=== PATIENT | male | born 1950 | race Caucasian/White ===

== ENCOUNTER → 2016-07-02 | Outpatient (CLI) | payer OTHER, MEDICARE ==
[~2016-07-02] MED LIST: ASPEC81 PO; ATOR-24 PO; CALC500C70 PO; METO25TA3 PO; NTRGSL/4 SL; RAMI5CAP PO
[2016-07-02 10:21] LABS: BASO % 0.8 %; BASO ABS # 0.05 K/uL (0-0.2); COMPLETE YES; HEMATOCRIT 44.4 % (42-52); IG% 0.2 %; LYMPH % 45.3 %; MEAN CELL VOLUME 88.1 fL (80-100); MEAN CORPUSCULAR HEMOGLOBIN 30.6 pg (25-34); MEAN CORPUSCULAR HGB CONC 34.7 g/dl (32-36); MEAN PLATELET VOLUME 10.7 fL (7.4-10.4); MONO % 10.5 %; NEUT % 38.2 %; PLATELET COUNT 160 K/uL (130-400); RED BLOOD COUNT 5.04 M/uL (4.7-6.1)
[2016-07-02 11:11] LABS: ESTIMATED AVERAGE GLUCOSE 140 mg/dl; HA1C FLAG Normal (Normal)
[2016-07-02 12:20] LABS: ALKALINE PHOSPHATASE 88 U/L (45-117); ALT/SGPT 49 U/L (12-78); AST/SGOT 43 U/L (15-37); BLOOD UREA NITROGEN 21 mg/dl (7-18); BUN/CREATININE RATIO 13.8 (10-20); CALCIUM 9.2 mg/dl (8.5-10.1); CARBON DIOXIDE 19 mmol/L (21-32); CHLORIDE 108 mmol/L (98-107); CHOLESTEROL 172 mg/dl (0-200); CHOLESTEROL/HDL RATIO 3.6; GLUCOSE 138 mg/dl (70-99); HDL CHOLESTEROL 48 mg/dl; LDL CHOLESTEROL CALCULATED 78 mg/dl; POTASSIUM 4.4 mmol/L (3.5-5.1); SODIUM 140 mmol/L (136-145); TRIGLYCERIDES 228 mg/dl (0-150); VERY LOW DENSITY LIPOPROT CALC 46 mg/dl
== END | disposition home or self-care (01) ==
LOC: C.LAB 09:45
PROVIDERS: ATTEND Family Medicine
DX: E78.5 Hyperlipidemia, unspecified (principal); N18.3 Chronic kidney disease, stage 3 (moderate); I12.9 Hypertensive chronic kidney disease with stage 1 through stage 4 chronic kidney disease, or unspecified chronic kidney disease; I73.9 Peripheral vascular disease, unspecified; R73.01 Impaired fasting glucose

== ENCOUNTER → 2016-08-07 | Outpatient (CLI) | payer OTHER, MEDICARE ==
[2016-08-07 10:58] LABS: HEMATOCRIT 42.5 % (42-52); MEAN CELL VOLUME 87.1 fL (80-100); MEAN CORPUSCULAR HEMOGLOBIN 30.5 pg (25-34); MEAN CORPUSCULAR HGB CONC 35.1 g/dl (32-36); MEAN PLATELET VOLUME 10.2 fL (7.4-10.4); PLATELET COUNT 143 K/uL (130-400); RED BLOOD COUNT 4.88 M/uL (4.7-6.1); WHITE BLOOD COUNT 5.71 K/uL (4.8-10.8)
[2016-08-07 11:07] LABS: BLOOD UREA NITROGEN 21 mg/dl (7-18); BUN/CREATININE RATIO 12.9 (10-20); CALCIUM 8.7 mg/dl (8.5-10.1); CARBON DIOXIDE 23 mmol/L (21-32); CHLORIDE 110 mmol/L (98-107); GLUCOSE 125 mg/dl (70-99); POTASSIUM 4.4 mmol/L (3.5-5.1); SODIUM 143 mmol/L (136-145)
[2016-08-07 11:18] LABS: CHOLESTEROL 158 mg/dl (0-200); HDL CHOLESTEROL 40 mg/dl; LDL CHOLESTEROL CALCULATED 76 mg/dl; TRIGLYCERIDES 211 mg/dl (0-150); VERY LOW DENSITY LIPOPROT CALC 42 mg/dl
== END | disposition home or self-care (01) ==
LOC: C.LAB 09:57
PROVIDERS: ATTEND Internal Medicine
DX: N18.3 Chronic kidney disease, stage 3 (moderate) (principal); I12.9 Hypertensive chronic kidney disease with stage 1 through stage 4 chronic kidney disease, or unspecified chronic kidney disease

== ENCOUNTER → 2016-09-04 | Outpatient (CLI) | payer OTHER, MEDICARE ==
[2016-09-04 12:17] LABS: BLOOD UREA NITROGEN 19 mg/dl (7-18); BUN/CREATININE RATIO 12.5 (10-20); CALCIUM 9.1 mg/dl (8.5-10.1); CARBON DIOXIDE 27 mmol/L (21-32); CHLORIDE 109 mmol/L (98-107); GLUCOSE 121 mg/dl (70-99); POTASSIUM 4.6 mmol/L (3.5-5.1); SODIUM 141 mmol/L (136-145)
== END | disposition home or self-care (01) ==
LOC: C.LAB 11:16
PROVIDERS: ATTEND Internal Medicine Cardiovascular Disease
DX: N18.3 Chronic kidney disease, stage 3 (moderate) (principal)

== ENCOUNTER → 2017-01-22 | Outpatient (CLI) | payer OTHER, MEDICARE ==
[2017-01-22 12:14] LABS: HEMATOCRIT 44.8 % (42-52); MEAN CELL VOLUME 91.2 fL (80-100); MEAN CORPUSCULAR HEMOGLOBIN 30.8 pg (25-34); MEAN CORPUSCULAR HGB CONC 33.7 g/dl (32-36); PLATELET COUNT 146 K/uL (130-400); RED BLOOD COUNT 4.91 M/uL (4.7-6.1); WHITE BLOOD COUNT 5.76 K/uL (4.8-10.8)
[2017-01-22 12:47] LABS: RATIO 57.6 mcg/mg (0-30.0)
[2017-01-22 12:47] LABS: ESTIMATED AVERAGE GLUCOSE 143 mg/dl; HA1C FLAG Normal (Normal)
[2017-01-22 12:48] LABS: BLOOD UREA NITROGEN 19 mg/dl (7-18); GLUCOSE 126 mg/dl (70-99)
[2017-01-22 12:49] LABS: ALB/GLOB RATIO 0.9 (0.9-2); ALKALINE PHOSPHATASE 91 U/L (45-117); ALT/SGPT 48 U/L (12-78); AST/SGOT 44 U/L (15-37); BUN/CREATININE RATIO 13.8 (10-20); CALCIUM 9.1 mg/dl (8.5-10.1); CARBON DIOXIDE 26 mmol/L (21-32); CHLORIDE 108 mmol/L (98-107); CHOLESTEROL 172 mg/dl (0-200); HDL CHOLESTEROL 43 mg/dl; LDL CHOLESTEROL CALCULATED 86 mg/dl; POTASSIUM 4.8 mmol/L (3.5-5.1); SODIUM 138 mmol/L (136-145); TRIGLYCERIDES 215 mg/dl (0-150); VERY LOW DENSITY LIPOPROT CALC 43 mg/dl
== END | disposition home or self-care (01) ==
LOC: C.LAB 10:26
PROVIDERS: ATTEND Family Medicine
DX: N18.3 Chronic kidney disease, stage 3 (moderate) (principal); I25.10 Atherosclerotic heart disease of native coronary artery without angina pectoris; E78.5 Hyperlipidemia, unspecified; I73.9 Peripheral vascular disease, unspecified; E11.9 Type 2 diabetes mellitus without complications; I12.9 Hypertensive chronic kidney disease with stage 1 through stage 4 chronic kidney disease, or unspecified chronic kidney disease

== ENCOUNTER → 2017-02-19 | Outpatient (CLI) | payer OTHER, MEDICARE ==
[~2017-02-19] MED LIST changes: +OPTIRAY 320 IV PRN
--- NOTE | 2017-02-19 12:20 | DIAGNOSTIC IMAGING REPORT ---
ANGIO ABD/PELVIS WITH CONTRAST CLINICAL HISTORY: 66 years-old Male presenting with I71.4 Aneurysm of infrarenal abdominal aorta. TECHNIQUE: Multidetector CT angiography of the abdomen and pelvis was performed after the administration of intravenous contrast. 3-D volumetric and/or maximum intensity projection (MIP) images were subsequently reconstructed for review. IV contrast: 119 mL of Optiray 320. A dose lowering technique was used consistent with the principles of ALARA (as low as reasonably achievable). COMPARISON: 01/27/2016. CT DOSE (mGy.cm): The estimated cumulative dose is 823.26 mGy.cm. 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 Immediately distal to the take off of the superior mesenteric artery is aneurysmal dilatation of the abdominal aorta, which measures 3.9 cm in maximal axial dimension, previously 3.9 cm. At the level of the takeoff of the renal arteries, there is suggestion of a short segment dissection or prominent mural thrombus. Alternatively this may represent postsurgical change. This is not significantly changed in appearance from prior. The celiac axis, superior mesenteric, and right renal arteries are patent. Minimal aneurysmal dilatation of one of the origins of the segmental right renal arteries measures 7 mm in diameter, not significant changed from prior. 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 Irregularity of the infrarenal abdominal aorta, which is likely postsurgical in etiology. Aneurysmal dilatation at the aortic bifurcation unchanged from prior. A tiny anteriorly projecting opacified outpouching is noted (series 3 image 248). This is unchanged from prior may represent a small penetrating ulcer. The common iliac arteries are normal in caliber beyond their origins. Atherosclerosis throughout the external iliac arteries with prominent calcified plaque resulting in significant narrowing at the level of the common femoral arteries. Minimal diameter on the right common femoral artery measures 3 to 4 mm in comparison to normal distal diameter of 10 mm. Minimal diameter on the left common femoral artery measures 5 mm in comparison to normal distal diameter of 8 mm. The appearance of the common femoral vessels on the prior exam were similar. No acute vascular injury is evident. The remainder of the exam demonstrates persistent architectural distortion at the left lung base, likely scarring. Old calcified granuloma noted. Suspected dependent atelectasis. No pericardial or pleural effusion. Normal heart size. The patient is postcholecystectomy. Atrophy of the left kidney. Multiple simple right renal cysts. No hydronephrosis. Remaining solid viscera normal. Sigmoid diverticulosis with wall thickening suggestive of chronic diverticular disease. Normal appendix. No free fluid. No lymphadenopathy. Degenerative changes of the spine. IMPRESSION: 1. Postsurgical changes of the abdominal aorta, which are stable appearance. No change in size of the 3.9 cm suprarenal abdominal aortic aneurysm. Unchanged appearance of the infrarenal abdominal aorta, likely postsurgical change versus less likely chronic short segment dissection. 2. Aneurysmal dilatation of the aortic bifurcation. Stable appearance of a tiny anteriorly projecting suspected penetrating ulcer at the level of the aortic bifurcation. 3. Bilateral stenosis of the common femoral arteries, not significant changed from prior. 4. Chronic diverticular disease of the sigmoid colon. 5. Persistent architectural distorting and suspected scarring of the left lung base. 6. Additional chronic changes as above. Electronically signed by: Juanjo Chaudhary M.D. 02/19/2017 12:19 PM Dictated Date/Time: 02/19/2017 12:05 PM
== END | disposition home or self-care (01) ==
LOC: C.CTS 11:25
PROVIDERS: ATTEND Internal Medicine Interventional Cardiology
DX: I71.4 Abdominal aortic aneurysm, without rupture (principal); I77.1 Stricture of artery; K57.32 Diverticulitis of large intestine without perforation or abscess without bleeding

== ENCOUNTER → 2017-03-15 | Outpatient (CLI) | payer OTHER, MEDICARE ==
[~2017-03-15] MED LIST changes: -OPTIRAY 320 IV PRN
[2017-03-15 16:23] LABS: BASO % 0.2 %; BASO ABS # 0.02 K/uL (0-0.2); COMPLETE YES; EOS % 1.3 %; IG% 0.2 %; LYMPH % 36.1 %; LYMPH ABS # 3.05 K/uL (1.2-3.4); MEAN CELL VOLUME 90.3 fL (80-100); MEAN CORPUSCULAR HEMOGLOBIN 30.5 pg (25-34); MEAN CORPUSCULAR HGB CONC 33.8 g/dl (32-36); MEAN PLATELET VOLUME 10.5 fL (7.4-10.4); MONO % 10.4 %; NEUT % 51.8 %; PLATELET COUNT 149 K/uL (130-400); RED BLOOD COUNT 4.65 M/uL (4.7-6.1); WHITE BLOOD COUNT 8.44 K/uL (4.8-10.8)
== END | disposition home or self-care (01) ==
LOC: C.LAB 15:27
PROVIDERS: ATTEND Family Medicine
DX: M10.072 Idiopathic gout, left ankle and foot (principal)

== ENCOUNTER → 2017-07-29 | Outpatient (CLI) | payer OTHER, MEDICARE ==
[2017-07-29 12:29] LABS: HEMOGLOBIN A1C 6.7 % (4.5-5.6)
[2017-07-29 12:37] LABS: ALT/SGPT 56 U/L (12-78); BLOOD UREA NITROGEN 21 mg/dl (7-18); CALCIUM 9.4 mg/dl (8.5-10.1); CARBON DIOXIDE 25 mmol/L (21-32); CHOLESTEROL 165 mg/dl (0-200); CREATININE 1.42 mg/dl (0.60-1.40); GLUCOSE 126 mg/dl (70-99); POTASSIUM 4.2 mmol/L (3.5-5.1); SODIUM 135 mmol/L (136-145)
[2017-07-29 12:45] LABS: LDL CHOLESTEROL CALCULATED 84 mg/dl
== END | disposition home or self-care (01) ==
LOC: C.LAB 10:06
PROVIDERS: ATTEND Family Medicine
DX: E78.5 Hyperlipidemia, unspecified (principal); I25.10 Atherosclerotic heart disease of native coronary artery without angina pectoris; I10 Essential (primary) hypertension

== ENCOUNTER → 2018-01-28 | Outpatient (CLI) | payer OTHER, MEDICARE ==
[~2018-01-28] MED LIST changes: -ASPEC81 PO; +ASPI-320 PO
[2018-01-28 12:42] LABS: ALT/SGPT 48 U/L (12-78); BLOOD UREA NITROGEN 19 mg/dl (7-18); CALCIUM 8.8 mg/dl (8.5-10.1); CARBON DIOXIDE 23 mmol/L (21-32); CHOLESTEROL 156 mg/dl (0-200); CREATININE 1.44 mg/dl (0.60-1.40); GLUCOSE 119 mg/dl (70-99); LDL CHOLESTEROL CALCULATED 77 mg/dl; POTASSIUM 4.7 mmol/L (3.5-5.1); SODIUM 135 mmol/L (136-145); URIC ACID 6.3 mg/dl (2.6-7.2)
[2018-01-28 12:55] LABS: HEMOGLOBIN A1C 6.8 % (4.5-5.6)
== END | disposition home or self-care (01) ==
LOC: C.LAB 10:33
PROVIDERS: ATTEND Family Medicine
DX: E78.5 Hyperlipidemia, unspecified (principal); E11.22 Type 2 diabetes mellitus with diabetic chronic kidney disease; N18.3 Chronic kidney disease, stage 3 (moderate); I12.9 Hypertensive chronic kidney disease with stage 1 through stage 4 chronic kidney disease, or unspecified chronic kidney disease; I25.10 Atherosclerotic heart disease of native coronary artery without angina pectoris; M10.9 Gout, unspecified; Z11.59 Encounter for screening for other viral diseases

== ENCOUNTER 2023-12-06 05:02 | Observation (INO) ==
--- NOTE | 2023-11-26 13:25 | PAT Medication Instructions ---
Medication Instructions Date of Service November 26, 2023 Home Medications Medication Instructions Recorded metformin 500 mg tablet 500 mg PO BID #180 tabs 06/22/23 ramipril 5 mg capsule 5 mg PO BID #180 caps 07/07/23 allopurinol 100 mg tablet 200 mg (2 x 100 mg) PO QAM gout 07/29/23 #180 tabs metoprolol succinate 50 mg 50 mg PO QAM #90 tabs 09/08/23 tablet,extended release 24 hr clindamycin phosphate 1 % lotion 1 applic topical DAILY PRN pimples 10/20/23 #60 mL Medication List: metformin 500 mg tablet 500 mg PO BID ramipril 5 mg capsule 5 mg PO BID allopurinol 100 mg tablet 200 mg (2 x 100 mg) PO QAM gout metoprolol succinate 50 mg tablet,extended release 24 hr 50 mg PO QAM clindamycin phosphate 1 % lotion 1 applic topical DAILY PRN pimples acetaminophen 500 mg capsule 1,000 mg PO TID PRN Pain aspirin 81 mg tablet,delayed release (Adult Aspirin Regimen) 81 mg PO QAM atorvastatin 40 mg tablet 40 mg PO QAM hyperlipidemia cholecalciferol (vitamin D3) 25 mcg (1,000 unit) tablet (Vitamin D3) 25 mcg PO QAM cyanocobalamin (vitamin B-12) 1,000 mcg tablet (Vitamin B-12) 1,000 mcg PO QAM isosorbide mononitrate 30 mg tablet,extended release 24 hr 30 mg PO QAM magnesium 200 mg tablet 400 mg PO QAM naproxen sodium 220 mg tablet 220 mg PO BID PRN Pain MEDICATION INSTRUCTIONS: Continue as directed clindamycin phosphate 1 % lotion 1 applic topical DAILY PRN pimples (do not apply near surgical area after bathing prior to surgery) ASK your surgeon for instructions naproxen sodium 220 mg tablet 220 mg PO BID PRN Pain ASK your prescriber and surgeon aspirin 81 mg tablet,delayed release (Adult Aspirin Regimen) 81 mg PO QAM DO NOT take the morning of surgery metformin 500 mg tablet 500 mg PO BID ramipril 5 mg capsule 5 mg PO BID cholecalciferol (vitamin D3) 25 mcg (1,000 unit) tablet (Vitamin D3) 25 mcg PO QAM cyanocobalamin (vitamin B-12) 1,000 mcg tablet (Vitamin B-12) 1,000 mcg PO QAM magnesium 200 mg tablet 400 mg PO QAM Take morning of surgery With a small sip of water, OTHERWISE NOTHING TO EAT OR DRINK AFTER MIDNIGHT: allopurinol 100 mg tablet 200 mg (2 x 100 mg) PO QAM gout metoprolol succinate 50 mg tablet,extended release 24 hr 50 mg PO QAM atorvastatin 40 mg tablet 40 mg PO QAM hyperlipidemia isosorbide mononitrate 30 mg tablet,extended release 24 hr 30 mg PO QAM acetaminophen 500 mg capsule 1,000 mg PO TID PRN Pain Take evening before surgery metformin 500 mg tablet 500 mg PO BID ramipril 5 mg capsule 5 mg PO BID acetaminophen 500 mg capsule 1,000 mg PO TID PRN Pain Other Notes If you have any questions please call us at [phone] or [phone] or [phone] or [phone]
--- NOTE | 2023-11-30 08:58 | Anesthesiology Consultation ---
Date of Service November 30, 2023 Assessment & Plan (1) Encounter for pre-operative examination: - check BSG am DOS. - urostomy bag: patient plans to bring overnight bag for observation interval post-op at [facility]. - cardiology office visit 11/19/23 [place]: "...Frequent ventricular premature beats. 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 Coronary arteryPCI to LAD x2 in 1999, 2000--stable, CCS class 1 symptoms...AAA - post open repair in 2006. Stable mild suprarenal, infrarenal residual aneurysms--maximum diameter 3.[address] 2017, 3.8 cm 10/2022...Chronic kidney disease--stage III, stable serum creatinine were around 1.1-1.5...Stable from a cardiac standpoint. Activity limited primarily by hip issues. No new exertional cardiac symptoms. On exam today no signs of heart failure. Clinically in sinus rhythm and no additional ectopy noted on exam...continue Toprol-XL 50 mg daily. Repeat Holter at some point..." - pulmonology office visit 09/02/23 [place]: "...prior history of tobacco exposure and emphysema identified on CT scan with PFTs showing borderline airflow obstruction versus normal variant..asymptomatic...does have a nodular density at the left lung base which will require radiographic surveillance...COPD: Will obtain complete PFTs. As the patient is asymptomatic at this point in time we will hold off on inhalers...pulmonary nodule: This nodular density at the left lung base may represent atelectasis or scarring. Continued radiographic surveillance is needed..." - Outpatient joint assessment: Patient is currently scheduled for inpatient pathway. If re-evaluated and patient/surgeon requests outpatient pathway, patient is not advised candidate for outpatient joint program from anesthesia standpoint. Chart Review Chart Review: Acceptable Risk for Surgery and Patient seen in Pre Admission Jessica morocho Teaching & Discussion Pre-Anesthesia Teaching/Discussion Notes: Instructed NPO after midnight before surgery, except medications with 15 cc of water. Medication instructions provided according to the PAT guidelines. History Surgery Operation Date: 12/06/23 07:00 Proposed Procedures p Right Anterior Total Hip Arthroplasty - Oscar Granado, DO Height/Weight Height: 5 ft 11 in Weight: 94.6 kg Allergies Allergy/AdvReac Type Severity Reaction Status Date / Time aztreonam Allergy Unknown swelling, Verified 11/25/23 11:12 hives Carbapenems Allergy Unknown swelling, Verified 11/25/23 11:12 hives Cephalosporins Allergy Unknown swelling, Verified 11/25/23 11:12 hives Penicillins Allergy Unknown swelling, Verified 11/25/23 11:12 hives Medications Home Medications Medication Instructions Recorded Confirmed Last Taken ramipril 5 mg capsule 5 mg PO BID #180 caps 07/07/23 11/25/23 Unknown allopurinol 100 mg tablet 200 mg (2 x 100 mg) PO QAM gout 07/29/23 11/25/23 Unknown #180 tabs metoprolol succinate 50 mg 50 mg PO QAM #90 tabs 09/08/23 11/25/23 Unknown tablet,extended release 24 hr clindamycin phosphate 1 % lotion 1 applic topical DAILY PRN pimples 10/20/23 11/25/23 Unknown #60 mL acetaminophen 500 mg capsule 1,000 mg PO TID PRN Pain 11/25/23 11/25/23 Unknown aspirin 81 mg tablet,delayed 81 mg PO QAM 11/25/23 11/25/23 Unknown release (Adult Aspirin Regimen) cholecalciferol (vitamin D3) 25 25 mcg PO QAM 11/25/23 11/25/23 Unknown mcg (1,000 unit) tablet (Vitamin D3) cyanocobalamin (vitamin B-12) 1,000 mcg PO QAM 11/25/23 11/25/23 Unknown 1,000 mcg tablet (Vitamin B-12) isosorbide mononitrate 30 mg 30 mg PO QAM 11/25/23 11/25/23 Unknown tablet,extended release 24 hr magnesium 200 mg tablet 400 mg PO QAM 11/25/23 11/25/23 Unknown naproxen sodium 220 mg tablet 220 mg PO BID PRN Pain 11/25/23 11/25/23 Unknown atorvastatin 40 mg tablet 40 mg PO QAM hyperlipidemia #90 11/26/23 Unknown tabs metformin 500 mg tablet 500 mg PO BID #180 tabs 11/26/23 Unknown Past Medical History Medical History (Updated 11/30/23 @ 09:24 by Jaye M. Onink, PA-C) Chronic kidney disease left renal atrophy COPD (chronic obstructive pulmonary disease) newly dx, following with Dr De Guzman-denannmarie needing albuterol inhaler Coronary artery disease S/p stent x 1 in 1999; stent x 1 2001 Difficult intravenous access DM type 2 (diabetes mellitus, type 2) on metformin Gout last flare more than 2 years ago High cholesterol History of abdominal aortic aneurysm (2006) s/p repair 2006 Also has had a infrarenal abd aortic aneurysm History of BPH History of COVID-19 01/2022, home test and drive thru [place] test, not hospitalized; congestion, fatigue>resolved History of prostate cancer "markers pointing towards prostate cancer" per [facility]. Hx of bladder cancer dx 2021 -> cystectomy Hx of tinnitus Hypertension controlled, stable per pt PAD (peripheral artery disease) Presence of urostomy Psoriasis Sensorineural hearing loss Sleep apnea cpap Patient denies h/o stroke, seizures, heart attack, heart failure, blood clots/DVTs or blood transfusions. Exercise / Class Metabolic Activity II 4-5 Yardwork/Stairs/Walk up hill (denies chest discomfort or shortness of breath with one flight of stairs) Past Family History Family History Mother Cardiac disorder Cancer Hypertension Father Myocardial infarction Sister Skin cancer Other No family history of adverse response to anesthesia Denies family history of Ovarian cancer Prostate cancer Breast cancer Colorectal cancer Past Surgical History Surgical History H/O Achilles tendon repair left H/O transurethral resection of bladder tumor (TURBT) (05/19/22) 05/19/22 Anisa; History of AAA (abdominal aortic aneurysm) repair (2006) 2006, [place], [place] History of angioplasty 12/2018, right leg, stent x1-[place] [facility]; placed behind RT knee.; f/u MONICA Martinez History of cardiac cath 1999, x1 stent, in [facility]. 04/18/2002, x1 stent-[address] in [facility] 11/2022 - [facility] no stents. History of cataract surgery bilat. History of cholecystectomy History of cystoscopy History of heart artery stent 1999, x1 stent, in [facility]. 04/18/2002, x1 stent-[address] in [place] History of total cystectomy (12/2022) [facility] Hx of colonoscopy S/P prostatectomy (12/2022) [facility] Status post surgical removal and fulguration of bladder neoplasm (10/2022) [facility] Past Anesthesia History No Hx of Anesthesia Complications and No Family Hx of Anesthesia Complications History of PONV No Hx of PONV and No Hx of Motion Sickness Social History Smoking Status: Former smoker tobacco type: cigarettes Smoking cigarettes per day: 40 Do You Dip or Chew Tobacco: No Smoking End Date: 2006 Hx Alcohol Use: Yes Alcohol type: beer alcohol intake frequency: a few times a month Hx Substance Use: No substance use type: does not use Review of Systems Patient denies chest pain, shortness of breath, dyspnea on exertion, reflux, fever, chills, cough, wheezing, or palpitations. Physical Exam Vital Signs Vitals BP 122/75 P 104 (Pt notes some anxiety regarding procedure/being in clinical setting) TEMP 98 SP02 96% on RA RESP 18 Physical Patient resting comfortably in chair in no acute distress, alert and oriented, responding appropriately throughout visit Full cervical extension range of motion without pain TMD 3.5 finger breadths Mallampati Score 3 Dentition: many implants; denies chipped or loose teeth, caps/crowns, or bridges Lungs: normal respiratory effort. Good air movement, clear throughout to auscultation, no adventitious breath sounds Cardiac: regular rate and rhythm, no murmurs noted Carotid arteries: negative bruit bilat Lab Results Anesthesia Preop Results Results Anesthesia Widget: WBC 13.33 K/ul (4.8-10.8) H 11/30/23 Hgb 11.1 g/dl (14.0-18.0) L 11/30/23 Hct 34.2 % (42.0-52.0) L 11/30/23 Plt 198 K/uL (130-400) 11/30/23 Na 137 mmol/L (136-145) 11/30/23 K 4.5 mmol/L (3.5-5.1) 11/30/23 Cl 104 mmol/L (98-107) 11/30/23 CO2 24 mmol/L (21-32) 11/30/23 BUN 30 mg/dl (6-23) H 11/30/23 Creat 1.25 mg/dl (0.6-1.4) 11/30/23 Glucose Level 214 mg/dl (70-99(Fasting)) H 11/30/23 PT 10.9 Seconds (9.0-12.0) 11/30/23 PTT 26 Seconds (21-31) 11/30/23 INR 1.0 (0.9-1.1) 11/30/23 HA1c 8.0 % (4.5-5.6) H 11/30/23 Blood Type O Positive 11/30/23 Antibody Screen NEGATIVE 11/30/23 Testing Laboratory Results Surgeon's office made aware of elevated A1c and WBC with left shift. Acceptable to proceed per discussion with Dr. Oconnor. Electrocardiogram Date: 07/15/23 Sinus rhythm with frequent and consecutive premature ventricular complexes, rate 77 bpm Left anterior fascicular block Minimal voltage criteria for LVH, may be normal variant Possible inferior infarct, age undetermined Echocardiogram Date: 08/26/23 EF 50-55% Grade I diastolic dysfunction Basal inferior and posterior hypokinesis and mid inferior hypokinesis Mild mitral regurgitation Stress Test Date: 11/26/22 MPHR 97% Abnormal exercise stress echo-increased inferior/inferoseptal hypokinesis with exercise METS 7 EF 50-55% Mild LVH No significant valvular pathology Cardiac Catheterization Date: 12/01/22 LM -normal caliber, no significant disease LAD -large caliber, proximal stent widely patent, early-mid segment with 50 to 60% stenosis prior to ectatic segment at proximal edge of mid LAD stent. Mid LA D stent widely patent. Remainder of vessel without significant disease and wraps around apex. Small D1/D2/D3 without significant disease. Medium D4 without disease. Circumflex -medium caliber, midsegment luminal irregularities. Small OM1 100% proximal occlusion. Fills via left to left bridging collaterals. Large OM 2 with 30% proximal disease. RCA -dominant, large caliber, mid segment ectatic with diffuse disease up to 40 to 50%, distal 30% disease. PDA/right PLB without significant disease. Coronary/AV magui branch provide right to left collaterals to occluded first septal Chronic nonobstructive CAD in major epicardial coronary arteries -Proximal LAD stent patent. Earlymid LAD 50-60% stenosis followed by ectatic segment and widely patent mid LAD stent Ectatic mid RCA with 40-50% disease 30% proximal OM2 Severe branch vessel disease 100% chronic small proximal OM1 fills via left to left bridging collaterals 100% ostial first septal fills via right to left collaterals. Recommendations: Medical Therapy and/or Counseling Pulmonary Function Test Date: 09/11/23 Normal baseline spirometry vs mild airflow obstruction Other Testing Chest CT 10/28/23 No acute findings. No suggestion metastatic bladder cancer. Cardiac event monitor 07/21/23 Sinus rhythm (47-130, avg 74 bpm) Frequent PVCs (20% burden) Occasional NSVT, longest 8 beats Paroxysmal SVT (5 events, longest 15 beats) Episodes of shortness of breath correlated sinus rhythm and PVCs Abdomen pelvis CT 07/09/23 Stable appearance of the abdomen and pelvis. No free fluid or free air. No significantly distended loops of bowel. Stable appearance of ileal conduit in the right lower quadrant. Diverticulosis without diverticulitis. Stable appearance of left renal atrophy. Stable appearance of left hepatic lobe low-density area measuring 6 mm.
[2023-12-06] MEDS: dexAMETHasone**PF** 10 MG/ML VIAL IV SCH (05:55)
[2023-12-06] MEDS: ACETAMINOPHEN 500 MG TAB PO SCH ×2 (05:55→14:03)
[2023-12-06] MEDS: LR 60ML/HR IV SCH (05:55)
[2023-12-06] MEDS: LR 15ML/HR IV SCH (05:55)
[2023-12-06] MEDS: GABAPENTIN 300 MG CAP PO SCH (05:55)
[2023-12-06] MEDS: FAMOTIDINE 20 MG TAB PO SCH (05:55)
[2023-12-06] MEDS ORDERED: ROPIVACAINE 0.5% 5 MG/ML 30 ML VIAL ONE (06:14)
--- NOTE | 2023-12-06 06:33 | History & Physical Bridge Note ---
Date of Service December 06, 2023 History & Physical Bridge Note I have examined the patient, reviewed the History & Physical and in the interval since the performance of the History & Physical I have noted the following changes of clinical significance: no changes noted
[2023-12-06] MEDS ORDERED: HYDROmorphone INJ 1 MG/ML SYRINGE IV PRN (06:39)
[2023-12-06] MEDS ORDERED: ATROPINE SULFATE 0.1 MG/ML 10ML SYR IV PRN (06:39)
[2023-12-06] MEDS ORDERED: ONDANSETRON INJ 2 MG/ML 2 ML VIAL IV PRN ×2 (06:39→10:39)
[2023-12-06] MEDS ORDERED: ePHEDrine sulfate 50 MG/ML AMP IV PRN (06:39)
[2023-12-06] MEDS ORDERED: MIDAZOLAM HCL 1 MG/ML 2ML VIAL ONE (06:40)
[2023-12-06] MEDS ORDERED: fentaNYL citrate PF 100 MCG/2 ML VIAL ONE (06:42)
[2023-12-06] MEDS: TRANEXAMIC ACID 1,000 MG **IV Pre-op IV SCH (06:43)
[2023-12-06] MEDS ORDERED: Nursing to Pharmacy Communication SCH (06:45)
[2023-12-06] MEDS: ceFAZolin 2000MG 2,000 MG/15 ML SYR IV SCH ×2 (06:58→14:03)
[2023-12-06] MEDS ORDERED: PROPOFOL IV EMULSION 10 MG/ML 20 ML VIAL IV ONE (07:09)
[2023-12-06] MEDS ORDERED: LIDOCAINE 2% 2 ML VIAL/AMP(20MG/ML) INFIL ONE (07:09)
[2023-12-06] MEDS ORDERED: PHENYLEPHRINE HCL 10 MG/ML VIAL ONE (07:23)
[2023-12-06] MEDS ORDERED: ePHEDrine sulfate 50 MG/5 ML SYR ONE (07:23)
[2023-12-06] MEDS ORDERED: PHENYLEPHRINE 100MCG/ML 10ML SYR IV ONE (07:23)
[2023-12-06] MEDS: ORTHO JOINT ANESTHETIC ONE (07:28)
[2023-12-06] MEDS: ROPIV 0.5% 246mg, Ketorolac 30mg, EPINEPHrine 0.5mg in NSS INFIL SCH (07:28)
[2023-12-06] MEDS ORDERED: VASOPRESSIN 20 UNIT/ML VIAL ONE (07:53)
[2023-12-06] MEDS: TRANEXAMIC ACID 1,000 MG **IV Intra-op IV SCH (08:11)
--- NOTE | 2023-12-06 08:12 | Operative Report ---
PG Post Operative Report Pre & Post Diagnosis Operation Date: 12/06/23 07:00 Pre-Op Diagnosis: Right Hip Degenerative Joint Disease Post-Op Diagnosis: Right Hip Degenerative Joint Disease I identified the patient and participated in the time-out.: Yes Procedure Operation Date: 12/06/23 07:00 Actual Procedures p Right Anterior Total Hip Arthroplasty(Right) - Oscar Granado DO Surgeon Oscar Granado DO [employer] Oscar Moreira PA-C Estimated Blood Loss 450 Findings Consistent with Post-Op Diagnosis Specimens Right femoral head Description of Procedure Implants used I used a [employer]immer[employer]omet total hip arthroplasty system with a size 6.5 high offset Avenir Complete stem, a 56 mm G7 cup with a 25mm screw, an E1 polyethylene liner, a 40 mm ceramic head with a 0 neck. Jose R arrived at the hospital for the above procedure. He was seen in the preoperative holding area and the operative extremity was identified and signed. He was given a spinal anesthetic, a preoperative antibiotic, and TXA. He was then taken back to the operating room and laid on the table in the supine position. He was given basic sedation. The operative leg was secured to a Puristst leg positioner. The hip was then prepped and draped in sterile fashion. A timeout was done and the patient and the operative extremity was properly identified. An anterior approach was used. Dissection was taken down through the fascia and the tensor muscle belly was retracted laterally and the rectus was retracted medially. The circumflex vessels were identified and ligated. The capsule was then incised and tagged for later repair. The femoral neck was then cut and the femoral head was removed. The acetabulum was exposed. Time was spent doing a complete circumferential labral release. Sequential reaming of the acetabulum up to a size 55 reamer was done. Final reamings were done under fluoroscopy to ensure appropriate version. A Biomet 56 mm G7 cup was then impacted into place. A single 25 mm screw was placed. The E1 polyethylene liner was then snapped into place. Surrounding soft tissues were then injected with 100 cc of an orth opedic pain control cocktail. The proximal femur was then exposed. Sequential broaching up to a size 6.5 broach was done. Off that broach a size 40 head with a 0 neck was trialed. The hip was reduced and fluoroscopic images showed anatomic alignment of the implants in acceptable length. The broach was removed. The final size 6.5 high offset Avenir Complete stem was then impacted into place. A ceramic 40 mm head with a 0 neck was then impacted onto the stem and the hip was reduced. Final fluoroscopic images showed anatomic alignment of the hip. The capsule was then closed with #1 Vicryl suture. A dilute betadyne lavage was then done for 3 minutes. The joint was then irrigated with normal saline solution. The fascia was closed with #1 PDS suture. Skin was closed with 2-0 Vicryl, lalo, and a Silverlon dressing. He was then transferred to a hospital bed and taken to the post anesthesia care unit in stable condition. He tolerated the procedure well. Oscar Moreira PA-C, was present for the entire procedure. He was critical for patient positioning, prepping, draping, retraction exposure, wound closure and application of sterile dressing. I attest to the content of the Intraoperative Record and any orders documented therein. Any exceptions are noted below.
--- NOTE | 2023-12-06 08:39 | Fluoroscopy Report ---
FL hip RT 1V CLINICAL HISTORY: RT ANTERIOR HIP COMPARISON STUDY: Radiographs 11/24/2023 FLUOROSCOPY TIME: 24 seconds FLUOROSCOPY IMAGES: 1 EXPOSURE DOSE: 3.0456 mGy FINDINGS: Right hip arthroplasty demonstrates satisfactory alignment. Surgical clips of the pelvis. N o acute fracture or dislocation. IMPRESSION: Fluoroscopic assistance as above. ACT 112: Negative or not required by law. Electronically signed by: Judson Bassett M.D. 12/06/2023 8:37 AM
[2023-12-06] MEDS ORDERED: METOCLOPRAMIDE HCL INJ 5 MG/ML 2 ML VIAL IV PRN (10:39)
[2023-12-06] MEDS ORDERED: HYDROmorphone INJ 0.5 MG/0.5 ML SYR IV PRN (10:39)
[2023-12-06] MEDS ORDERED: bisacodyL 10 MG SUPP PR PRN (10:39)
[2023-12-06] MEDS ORDERED: MAGNESIUM HYDROXIDE SUSP 30 ML UDC PO PRN (10:39)
[2023-12-06] MEDS ORDERED: NALOXONE HCL 0.4 MG/1 ML VIAL/CARP IV PRN (10:39)
[2023-12-06] MEDS ORDERED: PHARMACY GLYCEMIC MGMT CONSULT PRN (10:39)
[2023-12-06] MEDS: SODIUM CHLORIDE 0.9% 1,000 ML IV SCH (11:04)
[2023-12-06] MEDS: allopurinoL 100 MG TAB PO SCH (11:05)
[2023-12-06] MEDS: ATORVASTATIN 40 MG TAB PO SCH (11:05)
[2023-12-06] MEDS: METOPROLOL SUCC 50MG EXT REL TAB PO SCH (11:05)
[2023-12-06] MEDS: ISOSORBIDE MONO EXTENDED REL 30 MG TABCR PO SCH (11:06)
[2023-12-06] MEDS: DOCUSATE SODIUM 100 MG CAP PO SCH (11:07)
[2023-12-06] MEDS: MAGNESIUM OXIDE 400 MG TAB PO SCH (11:07)
[2023-12-06] MEDS: ASPIRIN 81 MG ECTAB PO SCH (11:07)
[2023-12-06] MEDS: MULTIVITAMIN TAB PO SCH (11:07)
[2023-12-06] MEDS ORDERED: DEXTROSE 50% 50 ML SYRINGE IV PRN (11:15)
[2023-12-06] MEDS ORDERED: GLUCAGON FOR INJ 1 MG VIAL IM PRN (11:15)
[2023-12-06] MEDS ORDERED: GLUCOSE 40% GEL 15 GM TUBE PO PRN (11:15)
[2023-12-06] MEDS ORDERED: GLUCOSE 10 TAB/TUBE PO PRN (11:15)
[2023-12-06] MEDS ORDERED: CARBOHYDRATES FOR HYPOGLYCEMIA PO PRN (11:15)
--- NOTE | 2023-12-06 11:15 | XRay Report ---
XR hip 1V RT w pelvis CLINICAL HISTORY: IN PACU - Post Surgical TECHNIQUE: 1 view of the right hip and single frontal view of the pelvis were obtained. Comparison: Comparison is made to hip radiograph 08/10/2023 FINDINGS: Patient is status post total hip arthroplasty with expected postsurgical changes including soft tissu e swelling and subcutaneous emphysema. IMPRESSION: Expected postoperative appearance status post placement of total hip arthroplasty. ACT 112: Negative or not required by law. Electronically signed by: Sinan Flores M.D. 12/06/2023 11:13 AM
--- NOTE | 2023-12-06 11:27 | Pharmacy Report ---
Pharmacy Glycemic Short Note 2 - Date of Service December 06, 2023 - Glycemic Short BSG Results (Last 24 hours): 12/06/23 12/06/23 12/06/23 05:38 08:44 08:47 POC Glucose 155 H < 10 L* 250 H 12/06/23 11:06 POC Glucose 230 H OUTPATIENT ANTIDIABETIC REGIMEN: * metformin 500 mg bid ASSESSMENT: * 73 year old now s/p surgery, POD - 0 ; Pharmacy consulted for glycemic management. Patient did receive IV steroid intraoperatively, therefore anticipate steroid induced hyperglycemia. POC BSG reading <10 with repeat of 250 mg/dL - unclear if this is an error with meter. No documentation regarding this lab result. Postop BSG 230 mg/dL - will trial weight based stress of 3 dosing. Plan to start Lantus 0.2 units/kg x 1 now PLAN FOR INPATIENT GLYCEMIC CONTROL: * Hold outpatient oral diabetes medications * Basal insulin * Lantus 20 units x 1 * Bolus insulin * NovoLog per scale ACHS or Q6hrs while NPO * Goal Range: Low 110 mg/dL - High 140 mg/dL * Correction Factor: 15 mg/dL/unit * Nutritional / Prandial insulin per carb ratio of 1 unit per 6 grams CHO consumed
[2023-12-06] MEDS: INSULIN ASPART PER UNIT CHARGE SC SCH (11:55)
[2023-12-06] MEDS: ENALAPRIL MALEATE 10 MG TAB PO SCH (11:55)
[2023-12-06] MEDS: LANTUS PER UNIT CHARGE SC ONE (11:55)
--- NOTE | 2023-12-06 12:14 | Anesthesiology Progress Note ---
Date of Service December 06, 2023 Anesthesia Post Procedure Vital Signs Vital Signs: Temp Pulse Pulse Resp BP BP Pulse Ox 12/06/23 11:23 36.7 C 89 16 108/66 99 12/06/23 11:08 87 18 107/69 97 12/06/23 10:30 36.4 C L 85 17 94/62 L 96 12/06/23 10:20 81 16 101/48 L 100 12/06/23 10:10 72 16 97/51 L 100 12/06/23 10:00 71 14 101/57 L 100 12/06/23 09:55 84 12 97/54 L 100 12/06/23 09:50 73 12 104/56 L 100 12/06/23 09:45 75 14 106/54 L 100 12/06/23 09:40 77 18 98/57 L 100 12/06/23 09:35 78 18 96/57 L 98 12/06/23 09:30 74 18 93/57 L 98 12/06/23 09:25 78 18 85/55 L 98 12/06/23 09:20 36.2 C L 76 15 90/55 L 96 12/06/23 09:10 79 14 101/53 L 100 12/06/23 09:00 77 14 101/52 L 100 12/06/23 08:50 81 15 106/52 L 100 12/06/23 08:45 90 20 98/52 L 99 12/06/23 08:39 36.0 C L 82 14 100/60 100 12/06/23 05:41 36.6 C 92 H 20 158/75 H 96 O2 Del Method O2 Flow Rate 12/06/23 11:23 Room Air 12/06/23 11:08 Room Air 12/06/23 10:30 Room Air 12/06/23 10:20 Nasal Cannula 2 12/06/23 10:10 Nasal Cannula 2 12/06/23 10:00 Nasal Cannula 2 12/06/23 09:55 Nasal Cannula 2 12/06/23 09:50 Nasal Cannula 2 12/06/23 09:45 Nasal Cannula 2 12/06/23 09:40 Nasal Cannula 2 12/06/23 09:35 Nasal Cannula 2 12/06/23 09:30 Nasal Cannula 2 12/06/23 09:25 Nasal Cannula 2 12/06/23 09:20 Room Air 12/06/23 09:10 Oxymask 2 12/06/23 09:00 Oxymask 3 12/06/23 08:50 Oxymask 6 12/06/23 08:45 Oxymask 6 12/06/23 08:39 Oxymask 6 12/06/23 05:41 Room Air Transfer of Care Handoff Completed per policy Notes Mental Status: alert / awake / arousable Patient Amnestic to Procedure: Yes Nausea / Vomiting: adequately controlled Pain: adequately controlled Airway Patency, RR, SpO2: stable & adequate BP & HR: stable & adequate Hydration State: stable & adequate Neuraxial Anesthesia: was administered and sensory block is resolving Anesthetic Complications: no major complications apparent
[2023-12-06] MEDS: ALLERGY Noted to ORDERED Medication SCH (15:23)
[2023-12-06] MEDS: SENNA 8.6 MG TAB PO SCH (19:34)
[2023-12-06] MEDS: LANTUS PER UNIT CHARGE SC SCH (20:40)
[2023-12-07] MEDS: INSULIN ASPART PER UNIT CHARGE SC SCH (00:01)
[2023-12-07] MEDS ORDERED: SODIUM CHLORIDE 0.9% 1000 ML BAG IV STA (00:36)
[2023-12-07] MEDS: SODIUM CHLORIDE 0.9% 1,000 ML IV ONE (00:56)
[2023-12-07 06:42] LABS: Basophils # (auto) 0.01 K/uL (0.00-0.20); Hematocrit (blood only) 24.8 % (42.0-52.0); Hemoglobin 8.1 g/dl (14.0-18.0); Immature Granulocytes # (auto) 0.19 K/uL (0.01-0.20); Immature Granulocytes % (auto) 0.9 %; Lymphocytes # (auto) 1.68 K/uL (1.20-3.40); Lymphocytes % (auto) 8.4 %; Mean Corpuscular Hemoglobin 30.7 pg (25.0-34.0); Mean Corpuscular Hgb Conc 32.7 g/dL (32.0-36.0); Mean Corpuscular Volume 93.9 fL (80.0-100.0); Mean Platelet Volume 9.9 fL (9.4-12.4); Monocytes # (auto) 1.26 K/uL (0.11-0.59); Monocytes % (auto) 6.3 %; Neutrophils # (auto) 16.94 K/uL (1.40-6.50); Neutrophils % (auto) 84.4 %; Platelet Count 157 K/uL (130-400); RDW Coefficient of Variation 15.6 % (11.5-14.5); RDW Standard Deviation 53.3 fL (36.4-46.3); Red Blood Count 2.64 M/uL (4.70-6.10); White Blood Count 20.08 K/ul (4.8-10.8)
--- NOTE | 2023-12-07 06:46 | Orthopedic Progress Note ---
Date of Service December 07, 2023 Assessment & Plan (1) Status post right hip replacement: Overall he seems to be doing fairly well. His blood pressure is a little bit low. His H&H were low this morning. I have a little bit concerned about sending him home today. I like to give him 1 unit of packed red blood cells. We can repeat the H&H tomorrow and see how he is feeling. If he is feeling well then he should be discharged to home tomorrow. Sofiya Odell was seen and examined at bedside this morning. Overall he is doing well. He is not having much pain in the right hip. He has been up and ambulating to a chair. He has no complaints.. Review of Systems All systems reviewed & are unremarkable except as noted in HPI & below. Physical Exam On physical examination the right hip, the dressing is clean and dry. His legs out full extension. His active dorsiflexion plantarflexion of his right ankle.. Results & Data Results & Data Laboratory Results . Diagnostic Findings X-rays of the right hip show the prosthesis to be in anatomic alignment without any evidence of fracture complication, or loosening.. PG Care Time/CCT Total # of Minutes Spent Total Time Spent with Patient: Total time spent is greater than 50% in coordination of care (as documented) at patient's floor/unit and/or counseling patient: Coding Level of Care Code 88368 Post Operative Follow-Up Diagnoses Status post right hip replacement Z96.641
[2023-12-07] MEDS ORDERED: SODIUM CHLORIDE 0.9% 250 ML IV PRN (06:47)
[2023-12-07 06:57] LABS: BUN Creatinine Ratio 31.9 (10-20); Creatinine Clr Calc Pharmacy 55.7 ml/min; Est GFR (African American) 59.5 ml/min; Est GFR (Non-African American) 51.4 ml/min; Potassium 4.6 mmol/L (3.5-5.1)
--- NOTE | 2023-12-07 09:00 | Pharmacy Report ---
Pharmacy Glycemic Short Note 2 - Date of Service December 07, 2023 - Glycemic Short BSG Results (Last 24 hours): 12/06/23 12/06/23 12/06/23 08:44 08:47 11:06 Glucose POC Glucose < 10 L* 250 H 230 H 12/06/23 12/06/23 12/06/23 16:25 20:28 23:52 Glucose POC Glucose 256 H 228 H 142 H 12/07/23 12/07/23 12/07/23 04:07 06:00 07:42 Glucose 123 H POC Glucose 112 H 116 H OUTPATIENT ANTIDIABETIC REGIMEN: * metformin 500 mg bid ASSESSMENT: 12/06: * POD # 1 s/p R CHRIST * Patient received 68 units of insulin yesterday (35 units basal + 33 units bolus). Post op hyperglycemia has resolved. * Fasting BSG of 116 mg/dL. Given that steroid induced hyperglycemia is resolving and patient received a significant amount of basal insulin yesterday, will delay administration of basal insulin until lunchtime today. * Will loosen Novolog parameters. 12/05: * 73 year old now s/p surgery, POD - 0 ; Pharmacy consulted for glycemic management. Patient did receive IV steroid intraoperatively, therefore anticipate steroid induced hyperglycemia. POC BSG reading <10 with repeat of 250 mg/dL - unclear if this is an error with meter. No documentation regarding this lab result. Postop BSG 230 mg/dL - will trial weight based stress of 3 dosing. Plan to start Lantus 0.2 units/kg x 1 now PLAN FOR INPATIENT GLYCEMIC CONTROL: * Hold outpatient oral diabetes medications * Basal insulin * Lantus 15 units SQ with lunch * Bolus insulin * NovoLog per scale ACHS or Q6hrs while NPO * Goal Range: Low 110 mg/dL - High 140 mg/dL * Correction Factor: 20 mg/dL/unit * Nutritional / Prandial insulin per carb ratio of 1 unit per 8 grams CHO consumed
[2023-12-07] MEDS: LANTUS PER UNIT CHARGE SC ONE (12:28)
[2023-12-07] MEDS: oxyCODONE HCL IR 5 MG TAB (IMMEDIATE RELEASE) PO PRN (12:30)
[2023-12-08 07:22] LABS: Basophils # (auto) 0.02 K/uL (0.00-0.20); Basophils % (auto) 0.2 %; Eosinophils # (auto) 0.07 K/uL (0.00-0.50); Eosinophils % (auto) 0.5 %; Hematocrit (blood only) 29.1 % (42.0-52.0); Hemoglobin 9.3 g/dl (14.0-18.0); Immature Granulocytes # (auto) 0.07 K/uL (0.01-0.20); Immature Granulocytes % (auto) 0.5 %; Lymphocytes # (auto) 1.69 K/uL (1.20-3.40); Lymphocytes % (auto) 12.9 %; Mean Corpuscular Hemoglobin 29.6 pg (25.0-34.0); Mean Corpuscular Volume 92.7 fL (80.0-100.0); Mean Platelet Volume 10.1 fL (9.4-12.4); Monocytes # (auto) 1.12 K/uL (0.11-0.59); Monocytes % (auto) 8.6 %; Neutrophils % (auto) 77.3 %; Platelet Count 138 K/uL (130-400); RDW Standard Deviation 54.1 fL (36.4-46.3); Red Blood Count 3.14 M/uL (4.70-6.10); White Blood Count 13.07 K/ul (4.8-10.8)
--- NOTE | 2023-12-08 16:25 | Orthopedic Progress Note ---
Date of Service December 08, 2023 Assessment & Plan (1) Status post right hip replacement: Overall he is doing well. His H&H has stabilized this morning. He is feeling okay. He will be seen by physical therapy today for ambulation and range of motion exercises. He can be discharged home later today. He will follow-up with orthopedics in 2 weeks. Sofiya Odell was seen and examined at bedside this morning. Overall is doing fairly well. Is not having much pain in the hip. He feels a little better after getting the blood yesterday. He has no complaints.. Review of Systems All systems reviewed & are unremarkable except as noted in HPI & below. Physical Exam On physical examination of the right hip, the dressing is clean and dry. His leg lengths are equal. He is active dorsiflexion plantarflexion of the right ankle.. Results & Data Results & Data Laboratory Results . Diagnostic Findings . PG Care Time/CCT Total # of Minutes Spent Total Time Spent with Patient: Total time spent is greater than 50% in coordination of care (as documented) at patient's floor/unit and/or counseling patient: Coding Level of Care Code 33646 Post Operative Follow-Up Diagnoses Status post right hip replacement Z96.641
--- NOTE | 2023-12-08 16:26 | Discharge Summary ---
Date of Service December 08, 2023 Principal Diagnosis Same as "Discharge Diagnosis" noted below under Discharge Instructions. Discharge Exam On physical examination of the right hip, the dressing is clean and dry. His leg lengths are equal. He is active dorsiflexion plantarflexion of the right ankle.. Discharge Data Procedures Performed Operation Date: 12/06/23 07:00 Actual Procedures p Right Anterior Total Hip Arthroplasty(Right) - Oscar Granado DO Ordered Studies 12/06/23 [place] hip RT 1V Routine Hospital Course (1) Status post right hip replacement: On December 06, 2023 Jose R arrived at [facility] and underwent a right hip replacement without complication. He had a spinal anesthetic. Postoperatively he was started on aspirin for DVT prophylaxis and transferred to the general orthopedic floors. His hospital course was relatively uneventful. On postop day #1 his H&H was a little bit low. I did give him 1 unit of packed red blood cells. He was able to work well with physical therapy. On postop day #2 his H&H had stabilized and was trending upward. He was feeling well. He did well once again with physical therapy doing ambulation and range of motion exercises. He he was then discharged home. He will follow-up with orthopedics in 2 weeks. PG Care Time/CCT Total # of Minutes Spent Total Time Spent with Patient: Total time spent is greater than 50% in coordination of care (as documented) at patient's floor/unit and/or counseling patient: Discharge Plan Discharge Items Patient Disposition: Home - Self-Care Reason For Visit: Right Hip Degenerative Joint Disease Discharge Diagnosis: Right hip replacement Activity: As commented below Non-emergency contact: Surgeon Call non-emergency contact if: your wound has increased redness and your wound has increased drainage Follow-up/Referrals: Veronica Mena MD [Primary Care Provider] - Diet: Regular Addtl Attending Provider Instructions: Activity and Therapy Recommendations: * If you are using [facility] then therapy will be provided at your home until they feel you have accomplished all of your goals. * If you are using [facility] then Physical Therapy will be provided until they feel you are ready to start Outpatient Physical Therapy. * If you are not using home therapy then Outpatient Physical Therapy should start about 3-5 days from your day of surgery. Therapy will last about 6-10 weeks * You were shown a series of exercises in the hospital. Do these exercises three times each day including the exercises you were shown in physical therapy. * Get up and walk several times each day.~ For the first four weeks, try not to stand or walk for more than one hour at a time. If you do stand or walk for more than one hour, you will not hurt anything, but your leg will likely swell.~~ * As you feel comfortable, you may change from the walker or crutches to a cane and~then to independent walking. Medications: * Narcotic You will likely be sent home from the hospital with a prescription for the narcotic pain medication that worked best throughout your stay. * Cefadroxil -take the antibiotic twice a day for 10 days to help prevent infection. * Aspirin Most patients will be required to take Aspirin 81mg twice a day for 6 weeks after surgery. This is obtained [id number] and a prescription is not necessary. * Other medications may be prescribed for specific circumstances. If you have any questions, please call the office at . * Resume previous home medications unless otherwise instructed TEDs/Elastic Stockings: The white elastic stockings help limit swelling and prevent blood clots from forming in your legs. The more you wear them, the more they work. Wear them for six weeks. Dressing Care: Leave the Silverlon dressing in place for 7 days. After 7 days you may remove the dressing. If the incision is not draining then you may leave the lalo open to air. If there is a little bit of drainage or if the lalo are getting stuck on your clothing then cover the incision with a dry dressing. The lalo will be removed at your 2 week follow-up appointment. Showering: You may shower with the Silverlon dressing in place. Do not let the shower spray hit the dressing directly. Pat the Silverlon dressing dry. If the dressing becomes wet underneath, then simply remove the dressing. Keep the incision dry until you are 7 days out from the day of surgery. After 7 days you may remove the Silverlon dressing and shower with the lalo exposed. Let soapy water run over the lalo and pat them dry. Do not scrub or soak the incision. Things To Watch For: * Drainage from the incision site that occurs more than one week after your surgery. * Increased redness at the incision site. * Fever above 102 degrees Fahrenheit. * Unusual chest pain or shortness of breath. * Call [facility] at with any of the above problems Follow-Up Visit: Follow-up with Dr. Granado's PA (Oscar Moreira) 2-3 weeks after your day of surgery. He will remove your lalo and answer any questions. If you have any additional questions or concerns, Dr Granado is usually in the office at the same time and will be available An appointment was probably scheduled when you signed-up for surgery in the office. If you have any questions call Office Instructions: More detailed instructions as well as Frequently Asked Questions were provided in a folder by our office when you signed-up for surgery. Please review these instructions when you get home. If you have any further questions or concerns, please feel free to call the office at [phone] Pending Studies at Discharge: No Stand-Alone Forms: My [facility] Medications and DC Order Prescriptions: New oxycodone 5 mg Tablet 5 mg PO Q4H PRN (Reason: pain) Qty: 30 0RF cefadroxil 500 mg capsule 500 mg PO BID 10 Days Qty: 20 0RF Continued ramipril 5 mg capsule 5 mg PO BID Qty: 180 3RF allopurinol 100 mg tablet 200 mg PO QAM Qty: 180 1RF metoprolol succinate 50 mg tablet extended release 24 hr 50 mg PO QAM Qty: 90 3RF metformin 500 mg tablet 500 mg PO BID Qty: 180 1RF Rx Instructions: TAKE 1 TABLET BY MOUTH TWICE A DAY atorvastatin 40 mg tablet 40 mg PO QAM Qty: 90 3RF clindamycin phosphate 1 % lotion 1 applic topical DAILY PRN (Reason: pimples) Qty: 60 1RF isosorbide mononitrate 30 mg tablet extended release 24 hr 30 mg PO QAM naproxen sodium 220 mg Tablet 220 mg PO BID PRN (Reason: Pain) acetaminophen 500 mg Capsule 1,000 mg PO TID PRN (Reason: Pain) cyanocobalamin (vitamin B-12) [Vitamin B-12] 1,000 mcg Tablet 1,000 mcg PO QAM magnesium 200 mg Tablet 400 mg PO QAM cholecalciferol (vitamin D3) [Vitamin D3] 25 mcg (1,000 unit) Tablet 25 mcg PO QAM Changed aspirin [Adult Aspirin Regimen] 81 mg tablet,delayed release (DR/EC) 81 mg PO BID 42 Days Qty: 0 0RF Discharge Orders: Discharge Order (Routine); Ordered 12/08/23 Ordered By: Oscar Granado Admission Data Admit Date/Time: 12/06/23 08:39 Attending Provider: Oscar Granado Admit Provider: Oscar Granado Primary Care Provider: Veronica Mena Other Interventions: Discharge Summary Assessment (RN) Last Done: 12/08/23 09:33
== END 2023-12-08 14:00 | disposition home or self-care (01) ==
LOC: 3E 05:02 → ASU 05:02

== ENCOUNTER 2024-01-04 15:00 | Inpatient (IN) ==
--- NOTE | 2024-01-04 15:16 | Emergency Department Note ---
Impression & Plan Right leg DVT, Acute UTI, Acute hyponatremia ED Provider Note NAME: VAUGHN KIRBY AGE: 73 SEX: M : 1950 ARRIVES VIA: Walk-In INFORMANT: Patient, ED PROVIDER(S): Jhonatan Ortiz MD CHIEF COMPLAINT: Outpatient referral, leg swelling, shortness of breath MEDICAL DECISION MAKING: Patient presents due to concern for right lower extremity swelling and associated shortness of breath. IV was established and blood work was obtained. Patient's blood work shows a white count of 17 with a hemoglobin of 9.2. The patient's platelet count is unremarkable. Kidney function with a creat of 1.2 sodium is low at 127 which is new for the patient. Patient does have mild transaminitis but normal bilirubin. Bio fire negative. Urinalysis showed concerns for infection. Urine and serum osmolality added along with urine electrolytes. Patient's DVT ultrasound is positive for acute iliac DVT. Heparin ordered. DVT ultrasound did show complex fluid collection which may represent seroma versus hematoma. Patient's overlying incision site is well- appearing. CT angiography of the chest is negative. Given the patient's multiple findings today including hyponatremia DVT UTI with associated elevated white count to believe the patient would benefit from admission at this time. I did speak with the on-call hospitalist service Dr. Landers and the patient was admitted to medicine service. Critical Care: I have personally spent 37 minutes of critical care time in direct management of this patient. This includes bedside care, interpretation of diagnostic studies, and testing, discussion with consultants, patient, and family members, and other require inpatient management activities. This 37 minutes is in excess of all separately billable procedures. Discussion w/ other healthcare providers: Dr. Landers inpatient medicine service Prior /Outside records reviewed: None Differential diagnosis: Reactive airway disease, pneumonia, pneumothorax, pneumonitis, COPD, CHF, infections, ACS, pulmonary embolism, musculoskeletal as well as other pathologies were considered. Diagnostics, as interpreted by me: ECG: Normal sinus rhythm, rate of 97, normal intervals, left axis deviation no ST elevations. Cardiac monitoring: An order was placed for continuous cardiac monitoring. The monitor shows a rate of 82 with sinus rhythm. Patient was placed on pulse oximetry Medical decision rules: None Imaging studies: I informally interpreted the patient's chest x-ray does not show obvious pneumonia or pneumothorax with formal report to follow. HPI: Patient presents at the behest of his outpatient physician to rule out DVTs the patient has had persistent right lower extremity swelling. The patient did have hip replacement completed by Dr. Granado about 1 month prior. Patient has had some shortness of breath which has gotten progressively worse over the last month. Patient has had a dry nonproductive cough. Former smoker not smoked in many years. Patient denies any chest pains. Patient states the swelling is only on the right side. Patient denies any abdominal pain. He does have a prior history of bladder cancer and currently has a urostomy. The patient did have his bladder removed and he was told that abscess was curative currently just under surveillance. PAST MEDICAL HISTORY: See Below PAST SURGICAL HISTORY: See Below SOCIAL HISTORY: See Below HOME MEDICATIONS: See Below ALLERGIES: See Below VITALS: See Below PHYSICAL EXAMINATION: GENERAL: NAD, non-toxic. EYE EXAM: Normal conjunctiva. PERRL, no anisocoria and EOM's grossly intact w/o pain. OROPHARYNX: Moist mucus membranes, grossly normal dentition. NECK: Trachea midline, no stridor. LUNGS: Clear to auscultation. Normal chest wall mechanics. HEART: NSR, no MRG. ABDOMEN: Abdomen soft, non-tender, no masses, no rebound or guarding. BACK: No CVA TTP. SKIN: No rashes and no bruising. UPPER EXTREMITIES: Upper extremities are grossly normal. LOWER EXTREMITIES: Right lower extremity edema without calf pain or erythema, good pedal pulse no crepitus. Neurovascular intact in the lower extremity. Surgical incisional sites over the anterior portion of the right hip well- appearing no crepitus ecchymosis bleeding erythema or drainage. NEURO EXAM: A&O x3, cranial nerves II-XII grossly intact, normal speech, moves all 4 extremities. Past Med/Surg History Problem List (Updated 01/05/24 @ 08:53 by Jhonatan Ortiz MD) Elevated transaminase level Anemia Acute hyponatremia (Acute) Sleep apnea cpap Acute UTI (Acute) Right leg DVT (Acute) Status post right hip replacement (~11/2023) Osteoarthritis of right hip Pulmonary nodule COPD (chronic obstructive pulmonary disease) Frequent ventricular premature beats Bilateral tinnitus Sensorineural hearing loss (SNHL) of both ears wears hearing aids Primary bladder malignant neoplasm Lesion of bladder BPH w urinary obs/LUTS Congestion of nasal sinus Nocturnal hypoxemia Severe obstructive sleep apnea CKD (chronic kidney disease) stage 3, GFR 30-59 ml/min (Chronic) Carpal tunnel syndrome of left wrist (Chronic) Colonic polyp (Chronic) Coronary artery disease (Chronic) Gout (Chronic) Hearing loss (Chronic) Hyperlipidemia (Chronic) Hypertension (Chronic) Psoriasis (Chronic) DM2 (diabetes mellitus, type 2) (Chronic) PAD (peripheral artery disease) (Chronic) S/p right LE stent 2019 Medical History (Updated 01/05/24 @ 08:53 by Jhonatan Ortiz MD) Difficult intravenous access PAD (peripheral artery disease) Sensorineural hearing loss COPD (chronic obstructive pulmonary disease) newly dx, following with Dr De Guzman-kyle needing albuterol inhaler Hx of tinnitus History of BPH History of prostate cancer "markers pointing towards prostate cancer" per [facility]. Hx of bladder cancer dx 2021 -> cystectomy Presence of urostomy History of abdominal aortic aneurysm (2006) s/p repair 2006 Also has had a infrarenal abd aortic aneurysm DM type 2 (diabetes mellitus, type 2) on metformin History of COVID-19 01/2022, home test and drive thru [place] test, not hospitalized; congestion, fatigue>resolved Psoriasis High cholesterol Hypertension controlled, stable per pt Gout last flare more than 2 years ago Coronary artery disease S/p stent x 1 in 1999; stent x 1 2001 Chronic kidney disease left renal atrophy Surgical History (Updated 12/20/23 @ 00:07 by Background Dajulieton) History of cardiac cath 1999, x1 stent, in [facility]. 04/18/2002, x1 stent-[address] [place] 11/2022 - [facility] no stents. S/P prostatectomy (12/2022) [facility] History of total cystectomy (12/2022) [facility] Status post surgical removal and fulguration of bladder neoplasm (10/2022) [facility] H/O transurethral resection of bladder tumor (TURBT) (05/19/22) 05/19/22 Anisa; History of cystoscopy Hx of colonoscopy History of AAA (abdominal aortic aneurysm) repair (2006) 2006, [place], [place] History of heart artery stent 1999, x1 stent, in [facility] 04/18/2002, x1 stent-[address] in [facility] History of angioplasty 12/2018, right leg, stent x1-[facility] stent; placed behind RT knee.; f/u MONICA Martinez H/O Achilles tendon repair left History of cataract surgery bilat. History of cholecystectomy Family History Mother Cardiac disorder Cancer Hypertension Father Myocardial infarction Sister Skin cancer Other No family history of adverse response to anesthesia Denies family history of Ovarian cancer Prostate cancer Breast cancer Colorectal cancer Social History Smoking Status: Former smoker Tobacco Type: Cigarettes Age Quit Using Tobacco: 51; packs per day: 2; Cigarettes Per Day: 40; Second Hand Exposure: No; Do You Dip or Chew Tobacco: No; Hx Alcohol Use: No Hx Substance Use: No Preferred Language: Tuvaluan Communication Ability: Effective Visual Impairment: No Limitations Hearing Ability: Normal Wrapping Machine Operator Required: No Beliefs That Will Affect Care: None marital status: Current Living Situation: Spouse current occupational status: retired current occupation: used to work in [email or web address] Feels Safe at Home: Yes Safety Concerns Comment: PT work Childhood Exposure to Second-Hand Smoke: Yes Diet: regular caffeine: Yes during the past year weight has: remained stable Dental Care, Regularly: Yes Physical Activity Frequency: 1-2 Times per Week Seatbelt Use: always Sunscreen Use: No Do you think of yourself as: straight/heterosexual Assistive Devices: CPAP and Walker Allergies Allergies Allergy/AdvReac Type Severity Reaction Status Date / Time aztreonam Allergy Intermediate swelling, Verified 01/04/24 17:43 hives Carbapenems Allergy Intermediate swelling, Verified 01/04/24 17:43 hives Cephalosporins Allergy Intermediate swelling, Verified 01/04/24 17:43 hives Penicillins Allergy Intermediate swelling, Verified 01/04/24 17:43 hives Home Meds Home Medications Medication Instructions Recorded Confirmed acetaminophen 500 mg capsule 1,000 mg PO TID PRN Pain 11/25/23 01/04/24 cholecalciferol (vitamin D3) 25 25 mcg PO QAM 11/25/23 01/04/24 mcg (1,000 unit) tablet (Vitamin D3) cyanocobalamin (vitamin B-12) 1,000 mcg PO QAM 11/25/23 01/04/24 1,000 mcg tablet (Vitamin B-12) isosorbide mononitrate 30 mg 30 mg PO QAM 11/25/23 01/04/24 tablet,extended release 24 hr magnesium 200 mg tablet 400 mg PO QAM 11/25/23 01/04/24 naproxen sodium 220 mg tablet 220 mg PO BID PRN Pain 11/25/23 01/04/24 Previous Rx's Medication Instructions Recorded ramipril 5 mg capsule 5 mg PO BID #180 caps 07/07/23 allopurinol 100 mg tablet 200 mg (2 x 100 mg) PO QAM gout 07/29/23 #180 tabs metoprolol succinate 50 mg 50 mg PO QAM #90 tabs 09/08/23 tablet,extended release 24 hr clindamycin phosphate 1 % lotion 1 applic topical DAILY PRN pimples 10/20/23 #60 mL atorvastatin 40 mg tablet 40 mg PO QAM hyperlipidemia #90 11/26/23 tabs metformin 500 mg tablet 500 mg PO BID #180 tabs 11/26/23 aspirin 81 mg tablet,delayed 81 mg PO BID 42 days #0 tabs 12/07/23 release (Adult Aspirin Regimen) oxycodone 5 mg tablet 5 mg PO Q6H PRN pain #30 tabs 12/29/23 Results & Data (ED) Vital Signs Vital Signs - 24 hr 01/04/24 15:06 01/04/24 15:28 01/04/24 15:41 Temperature 36.7 C Temperature Source Temporal Artery Scan Pulse Rate 111 H 111 H 96 H Pulse Rate [Apical] Pulse Rate from SpO2 Sensor Pulse Rhythm Regular Regular Pulse Rhythm [Apical] Pulse Strength Normal Pulse Strength [Apical] Respiratory Rate 18 18 Respiratory Effort / Characteristics Non-Labored Spontaneous Respiratory Depth Normal Respiratory Pattern Regular Blood Pressure 70/49 L Blood Pressure [Left Arm] Blood Pressure Mean 56 Blood Pressure Mean [Left Arm] Blood Pressure Position Sitting Pulse Oximetry 100 100 Oxygen Delivery Method Room Air Room Air Sepsis Recent Fever Within 48 Hours No Sepsis New/Unexplained Change in Mental Status No Sepsis Action Taken by Nursing Physician Notified 01/04/24 15:54 01/04/24 16:09 01/04/24 16:30 Temperature Temperature Source Pulse Rate 94 H 98 H Pulse Rate [Apical] 96 H Pulse Rate from SpO2 Sensor Pulse Rhythm Pulse Rhythm [Apical] Regular Pulse Strength Pulse Strength [Apical] Normal Respiratory Rate 18 17 20 Respiratory Effort / Characteristics Non-Labored Respiratory Depth Normal Respiratory Pattern Blood Pressure 115/77 145/72 H Blood Pressure [Left Arm] 125/77 Blood Pressure Mean 89 96 Blood Pressure Mean [Left Arm] 93 Blood Pressure Position Pulse Oximetry 97 94 100 Oxygen Delivery Method Room Air Sepsis Recent Fever Within 48 Hours Sepsis New/Unexplained Change in Mental Status Sepsis Action Taken by Nursing 01/04/24 17:54 01/04/24 18:00 01/04/24 18:14 Temperature Temperature Source Pulse Rate 85 86 Pulse Rate [Apical] Pulse Rate from SpO2 Sensor Pulse Rhythm Pulse Rhythm [Apical] Pulse Strength Pulse Strength [Apical] Respiratory Rate 16 12 Respiratory Effort / Characteristics Respiratory Depth Respiratory Pattern Blood Pressure 119/73 119/73 Blood Pressure [Left Arm] Blood Pressure Mean 88 94 Blood Pressure Mean [Left Arm] Blood Pressure Position Pulse Oximetry 100 100 Oxygen Delivery Method Sepsis Recent Fever Within 48 Hours Sepsis New/Unexplained Change in Mental Status Sepsis Action Taken by Nursing 01/04/24 18:14 01/04/24 18:24 01/04/24 18:30 Temperature Temperature Source Pulse Rate 82 Pulse Rate [Apical] Pulse Rate from SpO2 Sensor 83 Pulse Rhythm Pulse Rhythm [Apical] Pulse Strength Pulse Strength [Apical] Respiratory Rate 15 Respiratory Effort / Characteristics Respiratory Depth Respiratory Pattern Blood Pressure 119/73 138/79 Blood Pressure [Left Arm] Blood Pressure Mean 94 106 Blood Pressure Mean [Left Arm] Blood Pressure Position Pulse Oximetry 99 Oxygen Delivery Method Sepsis Recent Fever Within 48 Hours Sepsis New/Unexplained Change in Mental Status Sepsis Action Taken by Nursing 01/04/24 18:30 01/04/24 18:30 01/04/24 18:32 Temperature Temperature Source Pulse Rate 83 Pulse Rate [Apical] Pulse Rate from SpO2 Sensor 83 Pulse Rhythm Pulse Rhythm [Apical] Pulse Strength Pulse Strength [Apical] Respiratory Rate 16 Respiratory Effort / Characteristics Respiratory Depth Respiratory Pattern Blood Pressure 138/79 138/79 Blood Pressure [Left Arm] Blood Pressure Mean 106 106 Blood Pressure Mean [Left Arm] Blood Pressure Position Pulse Oximetry 99 Oxygen Delivery Method Sepsis Recent Fever Within 48 Hours Sepsis New/Unexplained Change in Mental Status Sepsis Action Taken by Nursing 01/04/24 18:51 01/04/24 19:00 01/04/24 19:00 Temperature Temperature Source Pulse Rate 85 Pulse Rate [Apical] Pulse Rate from SpO2 Sensor 86 Pulse Rhythm Pulse Rhythm [Apical] Pulse Strength Pulse Strength [Apical] Respiratory Rate 28 H Respiratory Effort / Characteristics Respiratory Depth Respiratory Pattern Blood Pressure 129/70 129/70 Blood Pressure [Left Arm] Blood Pressure Mean 103 103 Blood Pressure Mean [Left Arm] Blood Pressure Position Pulse Oximetry 99 Oxygen Delivery Method Sepsis Recent Fever Within 48 Hours Sepsis New/Unexplained Change in Mental Status Sepsis Action Taken by Nursing 01/04/24 19:06 01/04/24 19:23 01/04/24 19:30 Temperature Temperature Source Pulse Rate 81 87 Pulse Rate [Apical] Pulse Rate from SpO2 Sensor 81 Pulse Rhythm Pulse Rhythm [Apical] Pulse Strength Pulse Strength [Apical] Respiratory Rate 18 Respiratory Effort / Characteristics Respiratory Depth Respiratory Pattern Blood Pressure 141/85 H Blood Pressure [Left Arm] Blood Pressure Mean 111 Blood Pressure Mean [Left Arm] Blood Pressure Position Pulse Oximetry 86 L Oxygen Delivery Method Sepsis Recent Fever Within 48 Hours Sepsis New/Unexplained Change in Mental Status Sepsis Action Taken by Nursing 01/04/24 19:30 Temperature Temperature Source Pulse Rate Pulse Rate [Apical] Pulse Rate from SpO2 Sensor Pulse Rhythm Pulse Rhythm [Apical] Pulse Strength Pulse Strength [Apical] Respiratory Rate Respiratory Effort / Characteristics Respiratory Depth Respiratory Pattern Blood Pressure 141/85 H Blood Pressure [Left Arm] Blood Pressure Mean 111 Blood Pressure Mean [Left Arm] Blood Pressure Position Pulse Oximetry Oxygen Delivery Method Sepsis Recent Fever Within 48 Hours Sepsis New/Unexplained Change in Mental Status Sepsis Action Taken by Long Term Medications Current Medication List: was personally reviewed by me Laboratory Data Attestation: I reviewed the patient's lab results. 01/05/24 06:24 01/05/24 06:24 Lab Results 01/04/24 01/04/24 01/04/24 Range/Units 15:35 15:40 16:00 WBC 17.30 H (4.8-10.8) K/ul RBC 3.10 L (4.70-6.10) M/uL Hgb 9.2 L (14.0-18.0) g/dl POC Hgb 10.5 L (14.0-18.0) g/dl Hct 29.2 L (42.0-52.0) % POC Hct 31 L (42-52) % MCV 94.2 (80.0-100.0) fL MCH 29.7 (25.0-34.0) pg MCHC 31.5 L (32.0-36.0) g/dL RDW Std Deviation 57.6 H (36.4-46.3) fL RDW Coeff of Marly 16.8 H (11.5-14.5) % Plt Count 251 (130-400) K/uL MPV 9.6 (9.4-12.4) fL Immature Gran % (Auto) 0.8 % Neut % (Auto) 86.1 % Lymph % (Auto) 8.5 % Sibley % (Auto) 4.3 % Eos % (Auto) 0.2 % Baso % (Auto) 0.1 % Neut # (Auto) 14.90 H (1.40-6.50) K/uL Lymph # (Auto) 1.47 (1.20-3.40) K/uL Sibley # (Auto) 0.74 H (0.11-0.59) K/uL Eos # (Auto) 0.03 (0.00-0.50) K/uL Baso # (Auto) 0.02 (0.00-0.20) K/uL Immature Gran # (Auto) 0.14 (0.01-0.20) K/uL POC Sodium 128 L (135-144) mmol/L Sodium 127 L (136-145) mmol/L POC Potassium 4.4 (3.3-5.0) mmol/L Potassium 4.3 (3.5-5.1) mmol/L POC Chloride 97 L (101-112) mmol/L Chloride 93 L (98-107) mmol/L Carbon Dioxide 24 (21-32) mmol/L POC Total CO2 22 L (24-31) mmol/L Anion Gap 10 (3-11) POC Anion Gap 15.0 L (16-25) mmol/L POC BUN 25 H (7-18) mg/dl BUN 29 H (6-23) mg/dl Creatinine 1.26 (0.6-1.4) mg/dl POC Creatinine 1.3 (0.6-1.3) mg/dl Est Cr Clr Drug Dosing 56.5 ml/min Est GFR ( Amer) 64.7 ml/min Est GFR (Non-Af Amer) 55.8 ml/min BUN/Creatinine Ratio 23.0 H (10-20) Glucose 131 H (70-99(Fasting)) mg/dl POC Glucose (other) 131 H (70-99) mg/dl Osmolality 279 L (280-300) mOsm/kg Calcium 10.1 (8.6-10.3) mg/dl POC Ioniz Calcium Shadi 1.21 (1.12-1.32) mmol/l Magnesium 1.8 (1.7-2.4) mg/dl Total Bilirubin 0.7 (0.2-1.0) mg/dl AST 71 H (13-39) U/L ALT 88 H (7-52) U/L Alkaline Phosphatase 165 H (34-104) U/L Troponin I High Sens 18.5 (0-20) pg/ml Total Protein 8.1 (6.0-8.3) gm/dl Albumin 3.7 (3.4-5.0) gm/dl Globulin 4.4 H (2.5-4.0) gm/dl Albumin/Globulin Ratio 0.8 L (0.9-2) Procalcitonin 0.25 (0-0.5) ng/ml Urine Color Urine Appearance (Clear) Urine pH (4.5-7.5) Ur Specific [place] (1.000-1.030) Urine Protein (Negative) Urine Glucose (UA) (Negative) Urine Ketones (Negative) Urine Blood (Negative) Urine Nitrite (Negative) Urine Bilirubin (Negative) Urine Urobilinogen (Negative) Ur Leukocyte Esterase (Negative) Urine WBC (Auto) (0-5) /hpf Urine RBC (Auto) (0-2) /hpf U Hyaline Cast (Auto) (0-2) /lpf U Epithel Cells (Auto) (0-2) /hpf Urine Bacteria (Auto) (None Seen) Urine Osmolality (500-800) mOsm/kg Urine Sodium mmol/L Urine Potassium mmol/L Urine Chloride mmol/L Adenovirus (PCR) Not Detected (NotDetected) B. pertussis DNA (PCR) Not Detected (NotDetected) B.parapertussis DNA PCR Not Detected (NotDetected) C. pneumoniae DNA (PCR) Not Detected (NotDetected) Coronavirus OC43 (PCR) Not Detected (NotDetected) Coronavirus HKU1 (PCR) Not Detected (NotDetected) Coronavirus 229E (PCR) Not Detected (NotDetected) SARS-CoV-2 (PCR) Not Detected (NotDetected) Coronavirus NL63 (PCR) Not Detected (NotDetected) Human Metapneumovir PCR Not Detected (NotDetected) Influenza Type A (PCR) Not Detected (NotDetected) Influenza Type B (PCR) Not Detected (NotDetected) M. pneumoniae (PCR) Not Detected (NotDetected) Parainfluenza 1 (PCR) Not Detected (NotDetected) Parainfluenza 2 (PCR) Not Detected (NotDetected) Parainfluenza 3 (PCR) Not Detected (NotDetected) Parainfluenza 4 (PCR) Not Detected (NotDetected) RSV (PCR) Not Detected (NotDetected) Entero/Rhino (PCR) Not Detected (NotDetected) 01/04/24 Range/Units 16:33 WBC (4.8-10.8) K/ul RBC (4.70-6.10) M/uL Hgb (14.0-18.0) g/dl POC Hgb (14.0-18.0) g/dl Hct (42.0-52.0) % POC Hct (42-52) % MCV (80.0-100.0) fL MCH (25.0-34.0) pg MCHC (32.0-36.0) g/dL RDW Std Deviation (36.4-46.3) fL RDW Coeff of Marly (11.5-14.5) % Plt Count (130-400) K/uL MPV (9.4-12.4) fL Immature Gran % (Auto) % Neut % (Auto) % Lymph % (Auto) % Sibley % (Auto) % Eos % (Auto) % Baso % (Auto) % Neut # (Auto) (1.40-6.50) K/uL Lymph # (Auto) (1.20-3.40) K/uL Sibley # (Auto) (0.11-0.59) K/uL Eos # (Auto) (0.00-0.50) K/uL Baso # (Auto) (0.00-0.20) K/uL Immature Gran # (Auto) (0.01-0.20) K/uL POC Sodium (135-144) mmol/L Sodium (136-145) mmol/L POC Potassium (3.3-5.0) mmol/L Potassium (3.5-5.1) mmol/L POC Chloride (101-112) mmol/L Chloride (98-107) mmol/L Carbon Dioxide (21-32) mmol/L POC Total CO2 (24-31) mmol/L Anion Gap (3-11) POC Anion Gap (16-25) mmol/L POC BUN (7-18) mg/dl BUN (6-23) mg/dl Creatinine (0.6-1.4) mg/dl POC Creatinine (0.6-1.3) mg/dl Est Cr Clr Drug Dosing ml/min Est GFR ( Amer) ml/min Est GFR (Non-Af Amer) ml/min BUN/Creatinine Ratio (10-20) Glucose (70-99(Fasting)) mg/dl POC Glucose (other) (70-99) mg/dl Osmolality (280-300) mOsm/kg Calcium (8.6-10.3) mg/dl POC Ioniz Calcium Shadi (1.12-1.32) mmol/l Magnesium (1.7-2.4) mg/dl Total Bilirubin (0.2-1.0) mg/dl AST (13-39) U/L ALT (7-52) U/L Alkaline Phosphatase (34-104) U/L Troponin I High Sens (0-20) pg/ml Total Protein (6.0-8.3) gm/dl Albumin (3.4-5.0) gm/dl Globulin (2.5-4.0) gm/dl Albumin/Globulin Ratio (0.9-2) Procalcitonin (0-0.5) ng/ml Urine Color Yellow Urine Appearance Cloudy A (Clear) Urine pH 6.5 (4.5-7.5) Ur Specific [place] 1.011 (1.000-1.030) Urine Protein Trace H (Negative) Urine Glucose (UA) Negative (Negative) Urine Ketones Negative (Negative) Urine Blood Negative (Negative) Urine Nitrite Positive A (Negative) Urine Bilirubin Negative (Negative) Urine Urobilinogen Negative (Negative) Ur Leukocyte Esterase 3+ H (Negative) Urine WBC (Auto) 21-50 H (0-5) /hpf Urine RBC (Auto) 0-2 (0-2) /hpf U Hyaline Cast (Auto) 3-5 H (0-2) /lpf U Epithel Cells (Auto) 0-2 (0-2) /hpf Urine Bacteria (Auto) 4+ H (None Seen) Urine Osmolality 308 L (500-800) mOsm/kg Urine Sodium 45 mmol/L Urine Potassium 26.9 mmol/L Urine Chloride 49 mmol/L Adenovirus (PCR) (NotDetected) B. pertussis DNA (PCR) (NotDetected) B.parapertussis DNA PCR (NotDetected) C. pneumoniae DNA (PCR) (NotDetected) Coronavirus OC43 (PCR) (NotDetected) Coronavirus HKU1 (PCR) (NotDetected) Coronavirus 229E (PCR) (NotDetected) SARS-CoV-2 (PCR) (NotDetected) Coronavirus NL63 (PCR) (NotDetected) Human Metapneumovir PCR (NotDetected) Influenza Type A (PCR) (NotDetected) Influenza Type B (PCR) (NotDetected) M. pneumoniae (PCR) (NotDetected) Parainfluenza 1 (PCR) (NotDetected) Parainfluenza 2 (PCR) (NotDetected) Parainfluenza 3 (PCR) (NotDetected) Parainfluenza 4 (PCR) (NotDetected) RSV (PCR) (NotDetected) Entero/Rhino (PCR) (NotDetected) Administered Medications Enalapril Maleate (Enalapril Maleate 10 Mg Tab) 10 mg PO BID [facility] Stop: 02/03/24 22:13 Last Admin: 01/04/24 22:39 Dose: 10 mg Documented By: KD Heparin Sodium/Dextrose (Heparin Sodium/Dextrose) 25,000 units in 500 mls @ 30 mls/hr IV .[id number] PARAMJIT; Protocol Stop: 02/03/24 17:44 Last Titration: 01/05/24 07:34 Dose: 1,500 units/hr, 30 mls/hr Documented By: VANNESSA Co-signed By: JEFF Titration: 01/05/24 06:58 Dose: 1,500 units/hr, 30 mls/hr Documented By: JEFF Co-signed By: MADISON Titration: 01/05/24 00:59 Dose: 1,500 units/hr, 30 mls/hr Documented By: MADISON Co-signed By: OLEG Admin: 01/04/24 18:12 Dose: 1,500 units/hr, 30 mls/hr Documented By: ALBARO Co-signed By: ALIDA Insulin Aspart (Insulin Aspart Per Unit Charge) 0 units SC ACHS PARAMJIT Stop: 02/03/24 22:13 Last Admin: 01/04/24 22:43 Dose: Not Given Documented By: KD Oxycodone HCl (Oxycodone Hcl Ir 5 Mg Tab (Immediate Release)) 5 mg PO Q6H PRN PRN Reason: Moderate Pain (4,5,6) on NRS Stop: 01/18/24 22:13 Last Admin: 01/05/24 00:33 Dose: 5 mg Documented By: MADISON Sodium Chloride (Sodium Chloride 1 Gm Tablet) 1 gm PO BID PARAMJIT Stop: 02/03/24 20:59 Last Admin: 01/04/24 21:57 Dose: 1 gm Documented By: LETY Discontinued Medications Aspirin (Aspirin 81 Mg Ectab) 81 mg PO BID PARAMJIT Stop: 02/03/24 22:13 Last Admin: 01/04/24 22:40 Dose: 81 mg Documented By: KD Ceftriaxone Sodium (Rocephin) 2,000 mg in 50 mls @ 100 mls/hr IV NOW STA Stop: 01/04/24 17:56 Last Infusion: 01/04/24 20:06 Dose: Infused Documented By: Admin: 01/04/24 17:46 Dose: 100 mls/hr Documented By: ALBARO Ioversol (Optiray 320 125ml) 119 ml IV ONCE ONE Stop: 01/04/24 16:25 Last Admin: 01/04/24 16:24 Dose: 119 ml Documented By: SOO Ioversol (Optiray 320 125ml) 125 ml IV ONCE ONE Stop: 01/05/24 05:05 Last Admin: 01/05/24 05:04 Dose: 117 ml Documented By: NATALIE Imaging Data Radiologist's Impression: Chest X-Ray 01/04/24 15:28 XR chest 1V portable CLINICAL HISTORY: Dyspnea TECHNIQUE: Single frontal radiograph of the chest was obtained. Comparison: Comparison is made to chest radiograph 05/11/2022 FINDINGS: No lines and tubes are seen. Calcified aortic knob is seen. The lungs are clear. No evidence of pleural effusion or pneumothorax. IMPRESSION: No acute abnormalities and in particular no radiographic evidence of pneumonia. ACT 112: Negative or not required by law. Electronically signed by: Sinan Flores M.D. 01/04/2024 3:59 PM Chest CTA 01/04/24 15:28 CT angio chest PE protocol CLINICAL HISTORY: PE TECHNIQUE: Multidetector row helical CT of the chest was performed with angiographic protocol. Coronal and sagittal reformations were obtained. Coronal and sagittal MIPS were obtained from the axial data set and were submitted for review. Automated dose lowering techniques and/or adjustment according to patient size were utilized for this exam. CT DOSE: 834.86 mGy.cm Comparison: Comparison is made to chest radiograph 01/04/2024 FINDINGS: Lungs and pleura: Atelectasis versus scarring is seen in the dependent portions of the lungs. Emphysema is seen. Postsurgical changes are seen in the right apex. Heart and pericardium: Heart size is normal. No pericardial effusion. Vessels: No evidence of pulmonary embolism. Mediastinum and kathryn: Unremarkable. Chest wall and lower neck: Unremarkable. Abdomen: Left renal cyst is seen. Bones: Degenerative changes of the thoracic spine. Old healed rib fractures are seen. IMPRESSION: No acute abnormality and in particular no evidence of pulmonary embolus. ACT 112: Negative or not required by law. Electronically signed by: Sinan Flores M.D. 01/04/2024 4:35 PM Chest X-Ray 01/04/24 15:28 XR chest 1V portable CLINICAL HISTORY: Dyspnea TECHNIQUE: Single frontal radiograph of the chest was obtained. Comparison: Comparison is made to chest radiograph 05/11/2022 FINDINGS: No lines and tubes are seen. Calcified aortic knob is seen. The lungs are clear. No evidence of pleural effusion or pneumothorax. IMPRESSION: No acute abnormalities and in particular no radiographic evidence of pneumonia. ACT 112: Negative or not required by law. Electronically signed by: Sinan Flores M.D. 01/04/2024 3:59 PM Venous Doppler Study 01/04/24 15:28 US venous doppler LE RT CLINICAL HISTORY: RLE swelling TECHNIQUE: Right lower extremity real-time compression venous ultrasound with Color Doppler imaging. Utilizing real-time ultrasonic imaging multiple real time high-resolution ultrasonic images with compression and noncompression maneuvers of the deep venous system in addition to color doppler imaging were performed from the common femoral vein through the proximal calf veins. COMPARISON: None available at the time of this dictation. FINDINGS/IMPRESSION: Occlusive thrombus with some nonocclusive portions extends from the right iliac vein throughout the entire right leg. At the point of interest, there is a complex collection measuring 15.5 x 2.4 x 3.0 cm. This corresponds to the incision site and may represent a seroma versus hematoma. ACT 112: Negative or not required by law. Electronically signed by: Sinan Flores M.D. 01/04/2024 5:16 PM Discharge Plan Visit Data Chief Complaint: Referred by Doctor Stated Complaint: REF BY DOCTOR FOR US, POSSIBLE BLOOD CLOT ED Provider: Jhonatan Ortiz Discharge Problem: Right leg DVT, Acute UTI, Acute hyponatremia Patient Disposition: Admitted As Inpatient Discharge Instructions Interventions: ED Discharge Assessment Last Done: 01/04/24 22:15 Discharge Problem: Right leg DVT Qualifiers: Affected thrombotic vein of extremity: iliac Chronicity: acute Qualified Code(s): I82.421 - Acute embolism and thrombosis of right iliac vein
--- NOTE | 2024-01-04 16:00 | XRay Report ---
XR chest 1V portable CLINICAL HISTORY: Dyspnea TECHNIQUE: Single frontal radiograph of the chest was obtained. Comparison: Comparison is made to chest radiograph 05/11/2022 FINDINGS: No lines and tubes are seen. Calcified aortic knob is seen. The lungs are clear. No evidence of pleur al effusion or pneumothorax. IMPRESSION: No acute abnormalities and in particular no radiographic evidence of pneumonia. ACT 112: Negative or not required by law. Electronically signed by: Sinan Flores M.D. 01/04/2024 3:59 PM
[2024-01-04 16:04] LABS: Basophils # (auto) 0.02 K/uL (0.00-0.20); Basophils % (auto) 0.1 %; Eosinophils # (auto) 0.03 K/uL (0.00-0.50); Eosinophils % (auto) 0.2 %; Hematocrit (blood only) 29.2 % (42.0-52.0); Hemoglobin 9.2 g/dl (14.0-18.0); Immature Granulocytes # (auto) 0.14 K/uL (0.01-0.20); Immature Granulocytes % (auto) 0.8 %; Lymphocytes # (auto) 1.47 K/uL (1.20-3.40); Lymphocytes % (auto) 8.5 %; Mean Corpuscular Hemoglobin 29.7 pg (25.0-34.0); Mean Corpuscular Hgb Conc 31.5 g/dL (32.0-36.0); Mean Corpuscular Volume 94.2 fL (80.0-100.0); Mean Platelet Volume 9.6 fL (9.4-12.4); Monocytes # (auto) 0.74 K/uL (0.11-0.59); Monocytes % (auto) 4.3 %; Neutrophils % (auto) 86.1 %; Platelet Count 251 K/uL (130-400); RDW Coefficient of Variation 16.8 % (11.5-14.5); RDW Standard Deviation 57.6 fL (36.4-46.3)
[2024-01-04 16:11] LABS: iSTAT Creatinine 1.3 mg/dl (0.6-1.3); iSTAT Hemoglobin 10.5 g/dl (14.0-18.0); iSTAT Ionized Calcium 1.21 mmol/l (1.12-1.32); iSTAT Potassium 4.4 mmol/L (3.3-5.0)
[2024-01-04 16:18] LABS: Albumin Globulin Ratio 0.8 (0.9-2); Albumin Level 3.7 gm/dl (3.4-5.0); Bilirubin,Total 0.7 mg/dl (0.2-1.0); Calcium 10.1 mg/dl (8.6-10.3); Creatinine Clr Calc Pharmacy 56.5 ml/min; Est GFR (African American) 64.7 ml/min; Est GFR (Non-African American) 55.8 ml/min; Globulin 4.4 gm/dl (2.5-4.0); Magnesium 1.8 mg/dl (1.7-2.4); Potassium 4.3 mmol/L (3.5-5.1); Total Protein 8.1 gm/dl (6.0-8.3)
[2024-01-04] MEDS: OPTIRAY 320 125ml IV ONE (16:24)
[2024-01-04 16:26] LABS: Troponin I High Sensitivity 18.5 pg/ml (0-20)
--- NOTE | 2024-01-04 16:38 | CT Scan Report ---
CT angio chest PE protocol CLINICAL HISTORY: PE TECHNIQUE: Multidetector row helical CT of the chest was performed with angiographic protocol. Beal l and sagittal reformations were obtained. Coronal and sagittal MIPS were obtained from the axial sendy a set and were submitted for review. Automated dose lowering techniques and/or adjustment according to patient size were utilized for this exam. CT DOSE: 834.86 mGy.cm Comparison: Comparison is made to chest radiograph 01/04/2024 FINDINGS: Lungs and pleura: Atelectasis versus scarring is seen in the dependent portions of the lungs. Emphyse ma is seen. Postsurgical changes are seen in the right apex. Heart and pericardium: Heart size is normal. No pericardial effusion. Vessels: No evidence of pulmonary embolism. Mediastinum and kathryn: Unremarkable. Chest wall and lower neck: Unremarkable. Abdomen: Left renal cyst is seen. Bones: Degenerative changes of the thoracic spine. Old healed rib fractures are seen. IMPRESSION: No acute abnormality and in particular no evidence of pulmonary embolus. ACT 112: Negative or not required by law. Electronically signed by: Sinan Flores M.D. 01/04/2024 4:35 PM
[2024-01-04 16:49] LABS: Appearance Urine Cloudy (Clear); Bacteria Urine Automated 4+ (None Seen); Bilirubin Urine Negative (Negative); Blood Urine Negative (Negative); Color Urine Yellow; Epithelial Cell Urine Auto 0-2 /hpf (0-2); Glucose Urine UA Negative (Negative); Ketones Urine Negative (Negative); Leukocyte Esterase Urine 3+ (Negative); Nitrite Urine Positive (Negative); Protein Urine Trace (Negative); RBC Urine Automated 0-2 /hpf (0-2); Specific Gravity Urine 1.011 (1.000-1.030); Urobilinogen Urine Negative (Negative); WBC Urine Automated 21-50 /hpf (0-5); pH Urine 6.5 (4.5-7.5)
[2024-01-04 16:59] LABS: Adenovirus PCR Not Detected (NotDetected); Bordetella parapertussis PCR Not Detected (NotDetected); Bordetella pertussis PCR Not Detected (NotDetected); Chlamydia pneumoniae PCR Not Detected (NotDetected); Coronavirus 229E PCR Not Detected (NotDetected); Coronavirus CoV-2 (COVID19)PCR Not Detected (NotDetected); Coronavirus HKU1 PCR Not Detected (NotDetected); Coronavirus NL63 PCR Not Detected (NotDetected); Coronavirus OC43PCR Not Detected (NotDetected); Human Metapneumovirus PCR Not Detected (NotDetected); Influenza A PCR Not Detected (NotDetected); Influenza B PCR Not Detected (NotDetected); Mycoplasma pneumoniae PCR Not Detected (NotDetected); Parainfluenza Virus 1 PCR Not Detected (NotDetected); Parainfluenza Virus 2 PCR Not Detected (NotDetected); Parainfluenza Virus 3 PCR Not Detected (NotDetected); Parainfluenza Virus 4 PCR Not Detected (NotDetected); Respiratory Syncytial VirusPCR Not Detected (NotDetected); Rhinovirus/Enterovirus PCR Not Detected (NotDetected)
--- NOTE | 2024-01-04 17:17 | Ultrasound Report ---
US venous doppler LE RT CLINICAL HISTORY: RLE swelling TECHNIQUE: Right lower extremity real-time compression venous ultrasound with Color Doppler imaging. Utilizing real-time ultrasonic imaging multiple real time high-resolution ultrasonic images with comp ression and noncompression maneuvers of the deep venous system in addition to color doppler imaging w ere performed from the common femoral vein through the proximal calf veins. COMPARISON: None available at the time of this dictation. FINDINGS/IMPRESSION: Occlusive thrombus with some nonocclusive portions extends from the right iliac vein throughout the e ntire right leg. At the point of interest, there is a complex collection measuring 15.5 x 2.4 x 3.0 c m. This corresponds to the incision site and may represent a seroma versus hematoma. ACT 112: Negative or not required by law. Electronically signed by: Sinan Flores M.D. 01/04/2024 5:16 PM
[2024-01-04] MEDS ORDERED: Heparin IV Adult Wt-Based Standard *NO* INITIAL Bolus Protocol IV STA (17:27)
[2024-01-04] MEDS: cefTRIAXone SODIUM 2,000 MG/50 ML BAG IV STA (17:46)
[2024-01-04 17:53] LABS: Urine Potassium 26.9 mmol/L
[2024-01-04] MEDS: HEPARIN SODIUM/DEXTROSE 25,000 UNITS/500 ML BAG IV SCH (18:12)
--- NOTE | 2024-01-04 19:07 | History & Physical Report ---
Date of Service January 04, 2024 Assessment & Plan (1) Right leg DVT: Plan: Patient presented for intermittent right leg pain and swelling x 1 month US venous Doppler right lower extremity revealed DVT in the right iliac vein Chest CTA without acute pulmonary embolism Heparin IV A.m. CBC, BMP, mag (2) Acute hyponatremia: Plan: Na 127 on arrival (most recently Na 136 on 12/07/2023) Suspect component of SIADH in the setting of recent surgery v. infection SIADH labs ordered, pending Fluid restriction 1000 mL; free water fluid restriction Sodium chloride 1000 mg p.o. BID Trend BMP (3) Acute UTI: Plan: Leukocytosis 17.30 with neutrophil predominance; afebrile UA positive on arrival; however in the setting of urostomy would expect contamination No prior urine cultures with sensitivities Clinically, no flank pain or pain around the site of the urostomy Covered with Rocephin in the ED; while source is unclear at this time, will continue Rocephin for now given infection may be the cause of hyponatremia Blood cultures ordered Procalcitonin ordered (4) DM2 (diabetes mellitus, type 2): Plan: Last A1c at 8.0% on 11/30/23 Hold metformin SSI; with target BSG range 110-140mg/dL, CF 50, carb ratio 15 T2DM diet BSG ACHS Adjust regimen as needed (5) Anemia: Plan: Chronic, however slightly below baseline in the setting of recent right hip surgery; Hgb 9.2 on arrival Clinically, no signs of active bleeding on physical exam Trend a.m. CBC (6) Status post right hip replacement: Plan: On 12/07/23 (7) Sleep apnea: Plan: CPAP at bedtime (8) Hyperlipidemia: (9) Hypertension: (10) Elevated transaminase level: Plan Disposition: Admit to [facility] telemetry Full code T2DM diet VTE PPx: IV heparin History of Present Illness Chief Complaint: Right lower extremity swelling Primary Care Provider: Veronica Mena MD Jose R is a 73-year-old male with PMH of T2DM, PAD, HTN, HLD, gout, CKD stage III, severe ADOLFO, BPH, and COPD. Patient presented on 01/03 for persistent right lower extremity swelling, and worsening TENORIO x 1 month. Patient was at a pulmonary visit with Dr. De Guzman today for PFTs, but was sent in due to concern for blood clot in his right leg. No prior history of blood clots in his lungs or lungs. He does endorse dyspnea on exertion over the past month since his surgery; remote history of right hip replacement on 12/06. No SOB at rest. SOB is not worse when he lies flat on his back. No supplemental oxygen at baseline. Patient does use a CPAP at night. He has been ambulating with a walker at home, but does endorse some ambulatory dysfunction. Swelling in his leg has led to difficulty with sleeping. He characterizes the pain as a "achiness" that radiates from his hamstring up towards his buttocks. He has been taking oxycodone 5 mg at night for the pain which does help. Patient is s/p urostomy, and does not have a history of UTIs to his knowledge. Patient took his regular morning medications today; no recent change in medications. No history of GI bleeds or bleeding disorders. Patient does endorse having a PCN allergy, but this was over 40y ago; he had some facial swelling and rash; no anaphylaxis or throat closure. Patient denies smoking, tobacco use, or recent alcohol use. Patient's vitals are stable at time of admission. ED course: Heparin IV Rocephin 2000 mg IV ROS: Patient endorses achiness/erythema in the right leg, new TENORIO, and constipation. Patient denies fever, chills, night-sweats, dizziness, lightheadedness, ECKERT, SOB at rest, chest pain, chest pressure, chest palpitations, pleuritic CP, cough, hemoptysis, abdominal pain, N/V/D, or numbness/tingling in the right leg. Allergies Allergy/AdvReac Type Severity Reaction Status Date / Time aztreonam Allergy Intermediate swelling, Verified 01/04/24 17:43 hives Carbapenems Allergy Intermediate swelling, Verified 01/04/24 17:43 hives Cephalosporins Allergy Intermediate swelling, Verified 01/04/24 17:43 hives Penicillins Allergy Intermediate swelling, Verified 01/04/24 17:43 hives Home Medications Medication Instructions Recorded Confirmed Type ramipril 5 mg capsule 5 mg PO BID #180 caps 07/07/23 01/04/24 Rx clindamycin phosphate 1 % lotion 1 applic topical DAILY PRN pimples 10/20/23 01/04/24 Rx #60 mL acetaminophen 500 mg capsule 1,000 mg PO TID PRN Pain 11/25/23 01/04/24 History cholecalciferol (vitamin D3) 25 25 mcg PO QAM 11/25/23 01/04/24 History mcg (1,000 unit) tablet (Vitamin D3) cyanocobalamin (vitamin B-12) 1,000 mcg PO QAM 11/25/23 01/04/24 History 1,000 mcg tablet (Vitamin B-12) isosorbide mononitrate 30 mg 30 mg PO QAM 11/25/23 01/04/24 History tablet,extended release 24 hr magnesium 200 mg tablet 400 mg PO QAM 11/25/23 01/04/24 History atorvastatin 40 mg tablet 40 mg PO QAM hyperlipidemia #90 11/26/23 01/04/24 Rx tabs metformin 500 mg tablet 500 mg PO BID #180 tabs 11/26/23 01/04/24 Rx oxycodone 5 mg tablet 5 mg PO Q6H PRN pain #30 tabs 12/29/23 01/04/24 Rx allopurinol 100 mg tablet 200 mg (2 x 100 mg) PO QAM gout 01/08/24 Rx #180 tabs aspirin 81 mg tablet,delayed 81 mg PO DAILY 42 days #0 tabs 01/08/24 01/04/24 Rx release (Adult Aspirin Regimen) metoprolol succinate 50 mg 25 mg (1/2 x 50 mg) PO QAM #90 tabs 01/08/24 01/04/24 Rx tablet,extended release 24 hr pantoprazole 40 mg tablet,delayed 40 mg PO DAILY #30 tabs 01/08/24 Rx release polyethylene glycol 3350 17 gram 17 g PO DAILY #1 ea 01/08/24 Rx oral powder packet (Miralax) sennosides 8.6 mg tablet (Senokot) 17.2 mg (2 x 8.6 mg) PO QAM #30 01/08/24 Rx tabs Past Med/Surg History Problem List Pelvic mass Abscess of mesentery Elevated transaminase level Anemia Acute hyponatremia (Acute) Sleep apnea cpap Acute UTI (Acute) Right leg DVT (Acute) Status post right hip replacement (~11/2023) Osteoarthritis of right hip Pulmonary nodule COPD (chronic obstructive pulmonary disease) Frequent ventricular premature beats Bilateral tinnitus Sensorineural hearing loss (SNHL) of both ears wears hearing aids Primary bladder malignant neoplasm Lesion of bladder BPH w urinary obs/LUTS Congestion of nasal sinus Nocturnal hypoxemia Severe obstructive sleep apnea CKD (chronic kidney disease) stage 3, GFR 30-59 ml/min (Chronic) Carpal tunnel syndrome of left wrist (Chronic) Colonic polyp (Chronic) Coronary artery disease (Chronic) Gout (Chronic) Hearing loss (Chronic) Hyperlipidemia (Chronic) Hypertension (Chronic) Psoriasis (Chronic) DM2 (diabetes mellitus, type 2) (Chronic) PAD (peripheral artery disease) (Chronic) S/p right LE stent 2018 Medical History Difficult intravenous access PAD (peripheral artery disease) Sensorineural hearing loss COPD (chronic obstructive pulmonary disease) newly dx, following with Dr De Guzman-kyle needing albuterol inhaler Hx of tinnitus History of BPH History of prostate cancer "markers pointing towards prostate cancer" per [facility]. Hx of bladder cancer dx 2021 -> cystectomy Presence of urostomy History of abdominal aortic aneurysm (2006) s/p repair 2006 Also has had a infrarenal abd aortic aneurysm DM type 2 (diabetes mellitus, type 2) on metformin History of COVID-19 01/2022, home test and drive thru [place] test, not hospitalized; congestion, fatigue>resolved Psoriasis High cholesterol Hypertension controlled, stable per pt Gout last flare more than 2 years ago Coronary artery disease S/p stent x 1 in 1999; stent x 1 2001 Chronic kidney disease left renal atrophy Surgical History History of cardiac cath 1999, x1 stent, in [place], [place]. 04/18/2002, x1 stent-[address] in [facility] hosp 11/2022 - [facility] no stents. S/P prostatectomy (12/2022) [facility] History of total cystectomy (12/2022) [facility] Status post surgical removal and fulguration of bladder neoplasm (10/2022) [facility] H/O transurethral resection of bladder tumor (TURBT) (05/19/22) 05/19/22 Anisa; History of cystoscopy Hx of colonoscopy History of AAA (abdominal aortic aneurysm) repair (2006) 2006, [place], [place] History of heart artery stent 1999, x1 stent, in [place], [place] [place]. 04/18/2002, x1 stent-[address] in [place],[facility] History of angioplasty 12/2018, right leg, stent x1-[place] [facility] stent; placed behind RT knee.; f/u Dr Hernandez, [place] H/O Achilles tendon repair left History of cataract surgery bilat. History of cholecystectomy Family History Mother Cardiac disorder Cancer Hypertension Father Myocardial infarction Sister Skin cancer Other No family history of adverse response to anesthesia Denies family history of Ovarian cancer Prostate cancer Breast cancer Colorectal cancer Social History Smoking Status: Former smoker Tobacco Type: Cigarettes Age Quit Using Tobacco: 51; packs per day: 2; Cigarettes Per Day: 40; Second Hand Exposure: No; Do You Dip or Chew Tobacco: No; Hx Alcohol Use: No Hx Substance Use: No Preferred Language: Pashto Communication Ability: Effective Visual Impairment: No Limitations Hearing Ability: Normal Orthopedic Shoe Fitter Required: No Beliefs That Will Affect Care: None marital status: Current Living Situation: Spouse current occupational status: retired 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 Feels Safe at Home: Yes Safety Concerns Comment: PT work Childhood Exposure to Second-Hand Smoke: Yes Diet: regular caffeine: Yes during the past year weight has: remained stable Dental Care, Regularly: Yes Physical Activity Frequency: 1-2 Times per Week Seatbelt Use: always Sunscreen Use: No Do you think of yourself as: straight/heterosexual Assistive Devices: Cane, CPAP and Walker Review of Systems Review of Systems: See HPI above Physical Exam Physical Exam: General: no acute distress; non-toxic appearing; well-nourished; cooperative; SpO2 100% on RA HEENT: normocephalic, atraumatic; no scleral icterus; PERRLA; vision and hearing grossly intact Neck: supple; no lymphadenopathy; trachea midline Skin: warm, dry without signs of tenting; no cyanosis; no rashes, bruising, lesions, or erythema noted CV: chest wall NTP; RRR; S1/S2 normal; no murmurs/rubs/gallops; pulses intact and symmetric at radial, DP, and PT Lungs: no acute respiratory distress; symmetrical chest wall expansion; clear breath sounds across all lung lee w/o adventitious sounds; no wheezing ABD: Soft, NTP; urostomy bag without signs of erythema, infection, or drainage BS present; no rebound/guarding; no distention MSK: no tics or fasciculations; +1 pitting edema on the dorsal aspect of the right foot; significant swelling in the right lower extremity compared to the left lower extremity; right lower extremity mildly erythematous; patient demonstrates ability to wiggle toes bilaterally Neuro: A&Ox3; normal mood and affect; fluent speech; no focal deficits; sensation grossly intact in the LEs b/l Results & Data Results & Data Vital Signs (Past 12 Hours) Vital Signs Temp Pulse Pulse Resp BP BP Pulse Ox 01/04/24 18:00 86 12 119/73 100 01/04/24 17:54 85 16 100 01/04/24 16:30 98 H 20 145/72 H 100 01/04/24 16:09 96 H 17 125/77 94 01/04/24 15:54 94 H 18 115/77 97 01/04/24 15:41 96 H 01/04/24 15:28 111 H 18 100 01/04/24 15:06 36.7 C 111 H 18 70/49 L 100 O2 Del Method 01/04/24 18:00 01/04/24 17:54 01/04/24 16:30 01/04/24 16:09 Room Air 01/04/24 15:54 01/04/24 15:41 01/04/24 15:28 Room Air 01/04/24 15:06 Room Air Laboratory Results Abnormal lab results 01/04/24 01/04/24 01/04/24 Range/Units 15:40 16:00 16:33 WBC 17.30 H (4.8-10.8) K/ul RBC 3.10 L (4.70-6.10) M/uL Hgb 9.2 L (14.0-18.0) g/dl POC Hgb 10.5 L (14.0-18.0) g/dl Hct 29.2 L (42.0-52.0) % POC Hct 31 L (42-52) % MCHC 31.5 L (32.0-36.0) g/dL RDW Std Deviation 57.6 H (36.4-46.3) fL RDW Coeff of Marly 16.8 H (11.5-14.5) % Neut # (Auto) 14.90 H (1.40-6.50) K/uL [place] # (Auto) 0.74 H (0.11-0.59) K/uL POC Sodium 128 L (135-144) mmol/L Sodium 127 L (136-145) mmol/L POC Chloride 97 L (101-112) mmol/L Chloride 93 L (98-107) mmol/L POC Total CO2 22 L (24-31) mmol/L POC Anion Gap 15.0 L (16-25) mmol/L POC BUN 25 H (7-18) mg/dl BUN 29 H (6-23) mg/dl BUN/Creatinine Ratio 23.0 H (10-20) Glucose 131 H (70-99(Fasting)) mg/dl POC Glucose (other) 131 H (70-99) mg/dl Osmolality 279 L (280-300) mOsm/kg AST 71 H (13-39) U/L ALT 88 H (7-52) U/L Alkaline Phosphatase 165 H (34-104) U/L Globulin 4.4 H (2.5-4.0) gm/dl Albumin/Globulin Ratio 0.8 L (0.9-2) Urine Appearance Cloudy A (Clear) Urine Protein Trace H (Negative) Urine Nitrite Positive A (Negative) Ur Leukocyte Esterase 3+ H (Negative) Urine WBC (Auto) 21-50 H (0-5) /hpf U Hyaline Cast (Auto) 3-5 H (0-2) /lpf Urine Bacteria (Auto) 4+ H (None Seen) Urine Osmolality 308 L (500-800) mOsm/kg Diagnostic Findings Chest CTA 01/04/24 15:28 CT angio chest PE protocol CLINICAL HISTORY: PE TECHNIQUE: Multidetector row helical CT of the chest was performed with angiographic protocol. Coronal and sagittal reformations were obtained. Coronal and sagittal MIPS were obtained from the axial data set and were submitted for review. Automated dose lowering techniques and/or adjustment according to patient size were utilized for this exam. CT DOSE: 834.86 mGy.cm Comparison: Comparison is made to chest radiograph 01/04/2024 FINDINGS: Lungs and pleura: Atelectasis versus scarring is seen in the dependent portions of the lungs. Emphysema is seen. Postsurgical changes are seen in the right apex. Heart and pericardium: Heart size is normal. No pericardial effusion. Vessels: No evidence of pulmonary embolism. Mediastinum and kathryn: Unremarkable. Chest wall and lower neck: Unremarkable. Abdomen: Left renal cyst is seen. Bones: Degenerative changes of the thoracic spine. Old healed rib fractures are seen. IMPRESSION: No acute abnormality and in particular no evidence of pulmonary embolus. ACT 112: Negative or not required by law. Electronically signed by: Sinan Flores M.D. 01/04/2024 4:35 PM Chest X-Ray 01/04/24 15:28 XR chest 1V portable CLINICAL HISTORY: Dyspnea TECHNIQUE: Single frontal radiograph of the chest was obtained. Comparison: Comparison is made to chest radiograph 05/11/2022 FINDINGS: No lines and tubes are seen. Calcified aortic knob is seen. The lungs are clear. No evidence of pleural effusion or pneumothorax. IMPRESSION: No acute abnormalities and in particular no radiographic evidence of pneumonia. ACT 112: Negative or not required by law. Electronically signed by: Sinan Flores M.D. 01/04/2024 3:59 PM Venous Doppler Study 01/04/24 15:28 US venous doppler LE RT CLINICAL HISTORY: RLE swelling TECHNIQUE: Right lower extremity real-time compression venous ultrasound with Color Doppler imaging. Utilizing real-time ultrasonic imaging multiple real time high-resolution ultrasonic images with compression and noncompression maneuvers of the deep venous system in addition to color doppler imaging were performed from the common femoral vein through the proximal calf veins. COMPARISON: None available at the time of this dictation. FINDINGS/IMPRESSION: Occlusive thrombus with some nonocclusive portions extends from the right iliac vein throughout the entire right leg. At the point of interest, there is a complex collection measuring 15.5 x 2.4 x 3.0 cm. This corresponds to the incision site and may represent a seroma versus hematoma. ACT 112: Negative or not required by law. Electronically signed by: Sinan Flores M.D. 01/04/2024 5:16 PM ECG Additional Comments: ECG revealed NSR at 97 bpm; QTc 434 Code Status & VTE Plan Code Status Full code (discussed with patient and patient's at bedside) VTE Prophylaxis Plan VTE Prophylaxis will be ordered: Yes Supervising Physician Co-Signing Physician Notes I personally saw and examined the patient. I independently reviewed the labs, EKG, imaging, problem list, medication list, past medical history and family history. I verified all finch points and agree with Marciano Phillips PA-C with the following exceptions and/or additions: 73 year old male presents to the ER on advice of his ambulatory care coordinator due to right leg pain and swelling with concern for DVT. US confirmed extensive DVT including the iliac veins. O/E HS RRR, no murmurs, Chest CTAB, Abdo SNT, no CVA tenderness, right hip swelling without significant ecchymosis, pain and swelling mostly in his hamstring and calf muscles, urostomy appear healthy without surrounding cellulitis A/P Right leg DVT - given hx bladder cancer and extensive DVT including iliacs will get CT A/P venogram in AM to assess for compression (given recent contrast due to CTA will get this in AM). IV heparin initially for anticoagulation. Provoked due to right THR. Acute hyponatremia - Suspected SIADH although not definitive reason for this ?UTI. Fluid restrict + NaCl 1g BID. Repeat level in AM. Possible UTI - has urostomy therefore not clear this is a true infection but given no other source of leucocytosis or reason for SIADH will treat as true infection with ceftriaxone. PG Care Time/CCT Total # of Minutes Spent Total Time Spent with Patient: Total time spent is greater than 50% in coordination of care (as documented) at patient's floor/unit and/or counseling patient: [place] [address] INT INP/OBS CARE 3/75MIN Patient Type Established Medical Decision Making High Complexity Diagnoses Right leg DVT I82.401 Acute hyponatremia E87.1 Acute UTI N39.0 DM2 (diabetes mellitus, type 2) E11.9 Anemia D64.9 Status post right hip replacement Z96.641 Sleep apnea G47.30 Hyperlipidemia E78.5 Hypertension I10 Elevated transaminase level R74.01
[2024-01-04] MEDS: SODIUM CHLORIDE 1 GM TABLET PO SCH (21:57)
[2024-01-04] MEDS ORDERED: CARBOHYDRATES FOR HYPOGLYCEMIA PO PRN (22:14)
[2024-01-04] MEDS ORDERED: GLUCOSE 40% GEL 15 GM TUBE PO PRN (22:14)
[2024-01-04] MEDS ORDERED: GLUCAGON FOR INJ 1 MG VIAL SQ PRN (22:14)
[2024-01-04] MEDS ORDERED: GLUCOSE 10 TAB/TUBE PO PRN (22:14)
[2024-01-04] MEDS ORDERED: DEXTROSE 50% 50 ML SYRINGE IV PRN (22:14)
[2024-01-04] MEDS: ENALAPRIL MALEATE 10 MG TAB PO SCH (22:39)
[2024-01-04] MEDS: ASPIRIN 81 MG ECTAB PO SCH (22:40)
[2024-01-04] MEDS: INSULIN ASPART PER UNIT CHARGE SC SCH (22:43)
[2024-01-05] MEDS: oxyCODONE HCL IR 5 MG TAB (IMMEDIATE RELEASE) PO PRN (00:33)
[2024-01-05 00:46] LABS: ANTI-Xa, UFH(UnfractionatedHep 0.32 IU/ml (0.3-0.7)
[2024-01-05] MEDS: OPTIRAY 320 125ml IV ONE (05:04)
[2024-01-05 07:02] LABS: Basophils # (auto) 0.03 K/uL (0.00-0.20); Basophils % (auto) 0.2 %; Eosinophils # (auto) 0.08 K/uL (0.00-0.50); Eosinophils % (auto) 0.6 %; Hematocrit (blood only) 28.1 % (42.0-52.0); Hemoglobin 8.8 g/dl (14.0-18.0); Immature Granulocytes # (auto) 0.12 K/uL (0.01-0.20); Immature Granulocytes % (auto) 0.9 %; Lymphocytes # (auto) 1.42 K/uL (1.20-3.40); Lymphocytes % (auto) 10.2 %; Mean Corpuscular Hemoglobin 29.5 pg (25.0-34.0); Mean Corpuscular Hgb Conc 31.3 g/dL (32.0-36.0); Mean Corpuscular Volume 94.3 fL (80.0-100.0); Mean Platelet Volume 9.4 fL (9.4-12.4); Monocytes # (auto) 0.66 K/uL (0.11-0.59); Monocytes % (auto) 4.7 %; Neutrophils # (auto) 11.62 K/uL (1.40-6.50); Neutrophils % (auto) 83.4 %; Platelet Count 210 K/uL (130-400); RDW Coefficient of Variation 16.8 % (11.5-14.5); RDW Standard Deviation 58.4 fL (36.4-46.3); Red Blood Count 2.98 M/uL (4.70-6.10); White Blood Count 13.93 K/ul (4.8-10.8)
[2024-01-05 07:19] LABS: BUN Creatinine Ratio 23.6 (10-20); Calcium 9.6 mg/dl (8.6-10.3); Creatinine Clr Calc Pharmacy 67.1 ml/min; Est GFR (African American) 79.7 ml/min; Est GFR (Non-African American) 68.8 ml/min; Potassium 3.9 mmol/L (3.5-5.1)
[2024-01-05 07:23] LABS: ANTI-Xa, UFH(UnfractionatedHep 0.54 IU/ml (0.3-0.7)
--- NOTE | 2024-01-05 07:52 | CT Scan Report ---
Exam(s): CT ABDOMEN + PELVIS With Contrast IV Amt: 117 ML OPTIRAY 320 EXAM: CT Abdomen and Pelvis With Intravenous Contrast CLINICAL HISTORY: Reason for exam: DVT right iliac ?obstructive cause. TECHNIQUE: Axial computed tomography images of the abdomen and pelvis with intravenous contrast. CTDI is 26.57 mGy and DLP is 1370.26 mGy-cm. Automated exposure control was utilized for the study. A dose lowering technique was utilized adhering to the principles of ALARA. CONTRAST: Patient received 117 ML OPTIRAY 320 of IV contrast COMPARISON: No relevant prior studies available. FINDINGS: Lung bases: Unremarkable. No mass. No consolidation. ABDOMEN: Liver: See below. Gallbladder and bile ducts: Unremarkable. No calcified stones. No ductal dilation. Pancreas: Unremarkable. No mass. No ductal dilation. Spleen: Unremarkable. No splenomegaly. Adrenals: Unremarkable. No mass. Kidneys and ureters: Multiple water density well-circumscribed lesions demonstrated within the bilateral kidneys and probable a few within the liver presumably cysts. There is atrophy demonstrated to the left kidney. No hydronephrosis. Stomach and bowel: Unremarkable. No obstruction. No mucosal thickening. PELVIS: Appendix: No findings to suggest acute appendicitis. Bladder: There are postsurgical changes with apparent cystectomy and ileal loop conduit. There is linear region of soft tissue which connects from the distal aspect of the left common iliac artery to the region of conduit demonstrated within the right side of the pelvis Reproductive: Unremarkable as visualized. ABDOMEN and PELVIS: Intraperitoneal space: Additional regions of soft tissue density demonstrated within the right side of the mesentery up to 1.9 cm maximal transverse dimension. No free air. Bones/joints: There is fluid collection with thickened peripheral wall demonstrated just anterior lateral to the proximal aspect of the femur which may involve the left joint capsule it measures 5.0 x 4.8 cm in maximal transverse dimension. No acute fracture. No dislocation. Soft tissues: Unremarkable. Vasculature: A 4 x 8.3 cm lesion is demonstrated just medial to the right iliac bone intimately related to the right iliac vein . Dilatation and hypodensity demonstrated within the visualized left common femoral and iliac veins. Abdominal aortic aneurysm distally approximately 3.7 cm in maximal transverse dimension. Extensive calcific atherosclerotic vascular disease. Lymph nodes: Unremarkable. No enlarged lymph nodes. IMPRESSION: Abnormality demonstrated within the right side of the pelvis primary consideration is abscess which appears to be intimately related and involving the right iliac veins subsequent dilatation of hypodensity within the lumen of the right iliac veins and right common femoral vein presumably related to thrombus within this structure. Additional fluid collection is demonstrated within the proximal and anterior aspect of the right thigh which appears to be intimately related to the right hip joint septic joint/abscess here considered. Additional presumed small developing regions of phlegmon/abscess demonstrated right side of the mesentery. 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 Communications: Verify Receipt with Nurse Electronically signed by: Joey Magallanes MD 01/05/24 07:51 AM
[2024-01-05] MEDS ORDERED: ATORVASTATIN 40 MG TAB PO SCH (09:00)
[2024-01-05] MEDS: ASPIRIN 81 MG ECTAB PO SCH (09:20)
[2024-01-05] MEDS: metroNIDAZOLE 500 MG/100 ML BAG IV SCH (10:17)
[2024-01-05] MEDS: CEFEPIME 2,000 MG in SYRINGE 0 ML IV SCH (10:18)
[2024-01-05] MEDS: DAPTOmycin 500 MG in SYRINGE 0 ML IV SCH (10:18)
[2024-01-05] MEDS: allopurinoL 100 MG TAB PO SCH (10:40)
[2024-01-05] MEDS: ISOSORBIDE MONO EXTENDED REL 30 MG TABCR PO SCH (10:40)
[2024-01-05] MEDS: MAGNESIUM OXIDE 400 MG TAB PO SCH (10:40)
[2024-01-05] MEDS: METOPROLOL SUCC 50MG EXT REL TAB PO SCH (10:40)
--- NOTE | 2024-01-05 11:08 | Electrocardiogram Report ---
Test Reason : Blood Pressure : / mmHG Vent. Rate : 097 BPM Atrial Rate : 097 BPM P-R Int : 162 ms QRS Dur : 112 ms QT Int : 342 ms P-R-T Axes : 024 -50 069 degrees QTc Int : 434 ms Normal sinus rhythm Left anterior fascicular block Left ventricular hypertrophy with QRS widening and repolarization abnormality Abnormal ECG When compared with ECG of 15-JUL-2023 09:50, (unconfirmed) Premature ventricular complexes are no longer Present Confirmed by Herbert Patten ([id number]) on 01/05/2024 11:07:47 AM Referred By: REFERRED SELF Confirmed By:Herbert Patten
--- NOTE | 2024-01-05 14:41 | Hospitalist Progress Note ---
Date of Service January 05, 2024 Assessment & Plan (1) Pelvic mass: Plan: CT Venogram: Abnormality demonstrated within the right side of the pelvis primary consideration is abscess which appears to be intimately related and involving the right iliac veins subsequent dilatation of hypodensity within the lumen of the right iliac veins and right common femoral vein presumably related to thrombus within this structure. Additional fluid collection is demonstrated within the proximal and anterior aspect of the right thigh which appears to be intimately related to the right hip joint septic joint/abscess here considered. Additional presumed small developing regions of phlegmon/abscess demonstrated right side of the mesentery. 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 Regarding the pelvis abnormality within the right side - consideration is abscess - general surgery consulted - abscess for concerns for malignancy - cannot be reached by IR. Would recommend transfer to [facility] for tissue sampling if needed Regarding the hip/thigh collected - Dr. Granado, Orthopedics consulted - pt s/p R hip replacement on 12/07/2023 - IR vs OR drainage Afebrile but leukocytosis on arival Blood cultures pending Antibiotics escalated to Dapto, Cefepime and Flagyl - procal negative Continue heparin gtt at this time - will defer transition to [facility] until we know patient is not going to be going to OR AM CBC, CMP and CRP (2) Right leg DVT: Plan: Patient presented for intermittent right leg pain and swelling x 1 month US Doppler: right lower extremity occlusive (with some nonocclusive portions) DVT in illiac vein throughout entire leg Chest CTA without acute pulmonary embolism Heparin IV (3) Acute hyponatremia: Plan: Na 127 on arrival (most recently Na 136 on 12/07/2023) Suspect component of SIADH v. infection SIADH labs ordered - urine osm 308, urine NA 45 Fluid restriction 1500 Sodium chloride 1000 mg p.o. qam Trend BMP (4) Acute UTI: Plan: UA positive on arrival; however in the setting of urostomy would expect contamination Clinically, no flank pain or pain around the site of the urostomy Urine Culture: GNB abx as above (5) DM2 (diabetes mellitus, type 2): Plan: Last A1c at 8.0% on 11/30/23 Hold metformin SSI; with target BSG range 110-140mg/dL, CF 50, carb ratio 15 (6) Anemia: Plan: Chronic, however slightly below baseline in the setting of recent right hip surgery; Hgb 9.2 on arrival Clinically, no signs of active bleeding on physical exam Trend a.m. CBC (7) Elevated transaminase level: Plan: Denies abd pain - will trend Plan Chronic stable conditions: * Sleep apnea - continue CPAP * Gout - continue Allopurinol * HLD - continue statin * PAD/CAD - continue imdur, will continue ASA once a day with stents in place * HTN - continue Metoprolol and Enalapril Disposition: continue inpatient stay VTE PPx: IV heparin Discussed case with Dr. Adams, [facility] - surgery ROSA ELENA, Patrice Allen, and Dr. Granado. Admission and Anticipated Discharge Date Admission Date: January 04, 2024 Supervising Physician Co-Signing Physician Notes Attending Attestation: Chart reviewed, care plan d/w DOUGLAS Bazzi. I agree w/ the finch components of her documentation. Plan of care also d/w Dr Oscar Granado from orthopedics. To have IR drainage of fluid collection around right hip - tomorrow, 01/05. Will need anticoagulation (heparin IV) held at least 2 hours prior to the drainage procedure. Raj Estevez MD Subjective Patient was seen this morning - reports right hip/buttock pain over the last week. Has a good appetite. No issues with his urostomy, besides that he needs to change is dressing/ostomy soon. Denies fevers or chills at home No pain down the leg Review of Systems Review of Systems: All systems reviewed & are unremarkable except as noted in Subjective Physical Exam Physical Exam: General: NAD, VS as above Resp: normal respiratory effort, lungs clear to auscultation CV: RRR, no murmur, Abd: normal bowel sounds, soft, non tender. Urostomy draining clear yellow urine Extremities: left lower extremity - mild edema and warmth. left hip incision without obvious signs of infection. General tenderness to right hip Neuro: A&O x3, Skin: intact, no lesions noted Results & Data Results & Data Vital Signs (Past 12 Hours) Vital Signs Temp Pulse Pulse Resp BP Pulse Ox O2 Del Method 01/05/24 11:22 36.7 C 93 H 18 110/69 94 Room Air 01/05/24 07:38 36.4 C L 87 18 109/70 98 Room Air 01/05/24 07:21 89 01/05/24 04:35 89 18 98 01/05/24 03:31 36.4 C L 84 16 131/78 99 Room Air PG Care Time/CCT Total # of Minutes Spent Total Time Spent with Patient: Total time spent is greater than 50% in coordination of care (as documented) at patient's floor/unit and/or counseling patient: Coding Level of Care Code 55598 SUB INP/OBS CARE 3/50MIN Diagnoses Pelvic mass R19.00 Right leg DVT I82.421 Affected thrombotic vein of extremity: iliac Chronicity: acute Acute hyponatremia E87.1 Acute UTI N39.0 DM2 (diabetes mellitus, type 2) E11.9 Anemia D64.9 Elevated transaminase level R74.01 (2) Right leg DVT Affected thrombotic vein of extremity: iliac Chronicity: acute Qualified Co de(s): I82.421 - Acute embolism and thrombosis of right iliac vein
--- NOTE | 2024-01-05 14:51 | Surgery Consultation ---
Date of Consultation January 05, 2024 Assessment & Plan (1) Primary bladder malignant neoplasm: Patient is s/p urostomy, for bladder cancer 2022, underwent cystoprostatectomy done at [facility]. Denies radiation however did undergo chemotherapy. His last follow up/ CT can was in October of this year and reports that he was told there was no known abnormality/ or evidence of metastatic bladder CA. He denies abdominal discomfort , fever, chills , or feeling ill. He does report endorse fatigue. (2) Abscess of mesentery: On exam patient is in nad , abdomen is soft nontender non distended. Right lower extremity is edematous. WBC elevated at 13 (17) VSS Venogram CT IMPRESSION: Abnormality demonstrated within the right side of the pelvis primary consideration is abscess which appears to be intimately related and involving the right iliac veins subsequent dilatation of hypodensity within the lumen of the right iliac veins and right common femoral vein presumably related to thrombus within this structure. Additional fluid collection is demonstrated within the proximal and anterior aspect of the right thigh which appears to be intimately related to the right hip joint septic joint/abscess here considered. Additional presumed small developing regions of phlegmon/abscess demonstrated right side of the mesentery. 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 Dr aTdeo Pinzon and myself, Reviewed Venogram CT results and also CT scan from [facility] dated 10/28/23 with [facility] radiologist which state the possible abscess seen on today's venogram is also noted on 10/28/23 scan and reported concerns for malignancy. Spoke with IR who stated they are unable to access the pelvic abscess however could drain the right thigh collection. However we will defer this to orthopedics on how they would like to proceed given he is s/p Right CHRIST. Unfortunately general surgery has little to offer at this point given past abdominal surgical history. If the patient needs that fluid collection drained or needs a biopsy we recommend transfer to [facility] where he underwent his cystoprostatectomy. Recommend continuing blood thinners and IV antibiotics Patient seen and examined with Dr. Pinzon General surgery will sign off at this time, please call with questions or concerns. Supervising Physician Co-Signing Physician Notes Patient seen and examined, labs and imaging reviewed, agree with above. 73-year-old male with history of cystectomy with lymph node dissection and ileal conduit for bladder cancer, status post recent hip replacement in November admitted for new right lower extremity DVT. Imaging revealed fluid collection anterior to the hip replacement as well as some complex mixed cystic and solid lesions in the right pelvis. He denies any fevers has a mild leukocytosis. He is currently on heparin for his blood clot. Biggest complaint has been the heaviness and edema of his leg. On exam he is afebrile with stable vitals. Incision from hip replacement healing well. No abdominal pain. WBC 13.[address] personally reviewed and interpreted, as well as reviewed with 2 of our in- house radiologist. These collections in the pelvis appear to be more consistent with either tumor recurrence or necrotic lymph nodes which would be highly suspicious for metastatic disease. However, an abscess cannot clearly be ruled out at this time. There is a CT from [facility] from a few months ago that appears to show the starting of these areas. Given his lack of symptoms, it is felt that this most likely represents a tumor recurrence. This may require further imaging or tissue sampling, but this is can be done on an outpatient basis through his surgeons at [facility]. No acute surgical intervention is recommended or indicated at this time. Regarding the fluid collection anterior to his hip replacement, would defer to orthopedics. If symptoms worsen or change, repeat imaging could be obtained to see if these areas in his pelvis involved. Surgery will sign off, call with questions or concerns. History of Present Illness Reason for Consultation: pelvic lesion, ?sacral osteo. mesentery abscess Requesting Physician: Ariana Bazzi PA-C Attending Physician: Raj Estevez MD History of Present Illness Patient is a 73 yo male with PMH of T2DM, PAD, HTN, HLD, gout, CKD stage III, severe ADOLFO, BPH, and COPD that presented to [facility] ER on 01/04/24 The patient was seen at o/p clinic 01/03 and was told to come to ER for DVT workup has he noted to provider he had right lower extremity swelling, which he states has been present for the past month. No prior history of blood clots and report a recent Right CHRIST 12/06/23. Patient is s/p urostomy, for bladder cancer 2022, procedure done at [facility]. Denies radiation however did undergo chemotherapy. His last follow up/ CT can was in October of this year and reports that he was told there was no known abnormality. He denies abdominal discomfort , fever, chills , or feeling ill. He does report fatigue, and difficulty with ambulation since surgery. He under a Venogram CT which is reading right sided pelvis abnormality primary consideration is an abscess intimately related and involving the right iliac veins, Right common femoral vein thrombus, additional fluid collection within the proximal anterior aspect of the right thigh with possible right hip joint septic/abscess, presumed small developing regions of phlegmon/abscess on right side mesentery for which general surgery was consulted. He is on a heparin gtt. Allergies Allergy/AdvReac Type Severity Reaction Status Date / Time aztreonam Allergy Intermediate swelling, Verified 01/04/24 17:43 hives Carbapenems Allergy Intermediate swelling, Verified 01/04/24 17:43 hives Cephalosporins Allergy Intermediate swelling, Verified 01/04/24 17:43 hives Penicillins Allergy Intermediate swelling, Verified 01/04/24 17:43 hives Home Medications Medication Instructions Recorded Confirmed Type ramipril 5 mg capsule 5 mg PO BID #180 caps 07/07/23 01/04/24 Rx allopurinol 100 mg tablet 200 mg (2 x 100 mg) PO QAM gout 07/29/23 01/04/24 Rx #180 tabs metoprolol succinate 50 mg 50 mg PO QAM #90 tabs 09/08/23 01/04/24 Rx tablet,extended release 24 hr clindamycin phosphate 1 % lotion 1 applic topical DAILY PRN pimples 10/20/23 01/04/24 Rx #60 mL acetaminophen 500 mg capsule 1,000 mg PO TID PRN Pain 11/25/23 01/04/24 History cholecalciferol (vitamin D3) 25 25 mcg PO QAM 11/25/23 01/04/24 History mcg (1,000 unit) tablet (Vitamin D3) cyanocobalamin (vitamin B-12) 1,000 mcg PO QAM 11/25/23 01/04/24 History 1,000 mcg tablet (Vitamin B-12) isosorbide mononitrate 30 mg 30 mg PO QAM 11/25/23 01/04/24 History tablet,extended release 24 hr magnesium 200 mg tablet 400 mg PO QAM 11/25/23 01/04/24 History naproxen sodium 220 mg tablet 220 mg PO BID PRN Pain 11/25/23 01/04/24 History atorvastatin 40 mg tablet 40 mg PO QAM hyperlipidemia #90 11/26/23 01/04/24 Rx tabs metformin 500 mg tablet 500 mg PO BID #180 tabs 11/26/23 01/04/24 Rx aspirin 81 mg tablet,delayed 81 mg PO BID 42 days #0 tabs 12/07/23 01/04/24 Rx release (Adult Aspirin Regimen) oxycodone 5 mg tablet 5 mg PO Q6H PRN pain #30 tabs 12/29/23 01/04/24 Rx Patient History Medical History Difficult intravenous access PAD (peripheral artery disease) Sensorineural hearing loss COPD (chronic obstructive pulmonary disease) newly dx, following with Dr De Guzman-kyle needing albuterol inhaler Hx of tinnitus History of BPH History of prostate cancer "markers pointing towards prostate cancer" per [facility]. Hx of bladder cancer dx 2021 -> cystectomy Presence of urostomy History of abdominal aortic aneurysm (2006) s/p repair 2006 Also has had a infrarenal abd aortic aneurysm DM type 2 (diabetes mellitus, type 2) on metformin History of COVID-19 01/2022, home test and drive thru [place] test, not hospitalized; congestion, fatigue>resolved Psoriasis High cholesterol Hypertension controlled, stable per pt Gout last flare more than 2 years ago Coronary artery disease S/p stent x 1 in 1999; stent x 1 2001 Chronic kidney disease left renal atrophy Surgical History History of cardiac cath 1999, x1 stent, in [place], [place]-[facility]. 04/18/2002, x1 stent-[address] in [place] hosp 11/2022 - [facility] no stents. S/P prostatectomy (12/2022) [facility] History of total cystectomy (12/2022) [facility] Status post surgical removal and fulguration of bladder neoplasm (10/2022) [facility] H/O transurethral resection of bladder tumor (TURBT) (05/19/22) 05/19/22 Anisa; History of cystoscopy Hx of colonoscopy History of AAA (abdominal aortic aneurysm) repair (2006) 2006, [place], [place] History of heart artery stent 1999, x1 stent, in [facility]. 04/18/2002, x1 stent-[address] in [facility] History of angioplasty 12/2018, right leg, stent x1-[facility]; placed behind RT knee.; f/u Dr Hernandez, [place] H/O Achilles tendon repair left History of cataract surgery bilat. History of cholecystectomy Family History Mother Cardiac disorder Cancer Hypertension Father Myocardial infarction Sister Skin cancer Other No family history of adverse response to anesthesia Denies family history of Ovarian cancer Prostate cancer Breast cancer Colorectal cancer Social History Smoking Status: Former smoker Tobacco Type: Cigarettes Age Quit Using Tobacco: 51; packs per day: 2; Cigarettes Per Day: 40; Second Hand Exposure: No; Do You Dip or Chew Tobacco: No; Hx Alcohol Use: No Hx Substance Use: No Preferred Language: Indonesian Communication Ability: Effective Visual Impairment: No Limitations Hearing Ability: Normal Anti Tank Missile[employer] Required: No Beliefs That Will Affect Care: None marital status: Current Living Situation: Spouse current occupational status: retired 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 Feels Safe at Home: Yes Safety Concerns Comment: PT work Childhood Exposure to Second-Hand Smoke: Yes Diet: regular caffeine: Yes during the past year weight has: remained stable Dental Care, Regularly: Yes Physical Activity Frequency: 1-2 Times per Week Seatbelt Use: always Sunscreen Use: No Do you think of yourself as: straight/heterosexual Assistive Devices: Cane, CPAP and Walker Review of Systems Constitutional: + fatigue; no fever and no chills Cardiovascular: no chest pain Gastrointestinal: no abdominal pain Genitourinary: + problem reported Physical Exam Physical Exam: alert oriented pleasant Constitutional: cooperative and comfortable; no acute distress Respiratory: normal respiratory effort and able to speak in complete sentences; no respiratory distress Cardiovascular: Rate/Rhythm: regular rate Gastrointestinal (Abdomen): Inspection/Auscultation: + abdominal surgical drain present (ileal conduit ); abdomen not distended Percussion/Palpation: abdomen soft; abdomen nontender Musculoskeletal: Right leg swelling, post surgical anterior CHRIST scar Skin: no rashes, warm and dry Results & Data Vital Signs (Past 12 Hours) Vital Signs Temp Pulse Pulse Resp BP Pulse Ox O2 Del Method 01/05/24 11:22 98.1 F 93 H 18 110/69 94 Room Air 01/05/24 07:38 97.5 F L 87 18 109/70 98 Room Air 01/05/24 07:21 89 01/05/24 04:35 89 18 98 01/05/24 03:31 97.5 F L 84 16 131/78 99 Room Air Diagnostic Findings [place], [place] [phone] CT Scan Report Patient: VAUGHN KIRBY Admit Date: 01/04/24 MR#: [id number] Address1: [address] Acct ID:[id number] Address2: Date: [address] [facility] [facility] Zip: [place] [address] Age: 73 Location: Sex: Room/Bed: [facility] Att Phy: Raj Estevez MD Diagnosis: RIGHT LEG SWELLING, TENORIO Jennifer Phy: Veronica Mena MD Service Date: 01/05/24 Fam Phy: Interpreting Phy: Joey Magallanes DOAdmit Phy: Raj Landers MD Ordering Phy: Raj Landers MD cc: ~ ADDENDUM ADDENDUM: 01/05/24 07:59 Verify Receipt with Nurse Verified receipt with Nurse Zonia on 01/04 07:59 (-04:00) Electronically signed by: Joey Magallanes MD Electronically signed by: Joey Magallanes MD 01/05/24 07:51 AM ADDENDUM END Exam(s): CT ABDOMEN + PELVIS With Contrast IV Amt: 117 ML OPTIRAY 320 EXAM: CT Abdomen and Pelvis With Intravenous Contrast CLINICAL HISTORY: Reason for exam: DVT right iliac ?obstructive cause. TECHNIQUE: Axial computed tomography images of the abdomen and pelvis with intravenous contrast. CTDI is 26.57 mGy and DLP is 1370.26 mGy-cm. Automated exposure control was utilized for the study. A dose lowering technique was utilized adhering to the principles of ALARA. CONTRAST: Patient received 117 ML OPTIRAY 320 of IV contrast COMPARISON: No relevant prior studies available. FINDINGS: Lung bases: Unremarkable. No mass. No consolidation. ABDOMEN: Liver: See below. Gallbladder and bile ducts: Unremarkable. No calcified stones. No ductal dilation. Pancreas: Unremarkable. No mass. No ductal dilation. Spleen: Unremarkable. No splenomegaly. Adrenals: Unremarkable. No mass. Kidneys and ureters: Multiple water density well-circumscribed lesions demonstrated within the bilateral kidneys and probable a few within the liver presumably cysts. There is atrophy demonstrated to the left kidney. No hydronephrosis. Stomach and bowel: Unremarkable. No obstruction. No mucosal thickening. PELVIS: Appendix: No findings to suggest acute appendicitis. Bladder: There are postsurgical changes with apparent cystectomy and ileal loop conduit. There is linear region of soft tissue which connects from the distal aspect of the left common iliac artery to the region of conduit demonstrated within the right side of the pelvis Reproductive: Unremarkable as visualized. ABDOMEN and PELVIS: Intraperitoneal space: Additional regions of soft tissue density demonstrated within the right side of the mesentery up to 1.9 cm maximal transverse dimension. No free air. Bones/joints: There is fluid collection with thickened peripheral wall demonstrated just anterior lateral to the proximal aspect of the femur which may involve the left joint capsule it measures 5.0 x 4.8 cm in maximal transverse dimension. No acute fracture. No dislocation. Soft tissues: Unremarkable. Vasculature: A 4 x 8.3 cm lesion is demonstrated just medial to the right iliac bone intimately related to the right iliac vein . Dilatation and hypodensity demonstrated within the visualized left common femoral and iliac veins. Abdominal aortic aneurysm distally approximately 3.7 cm in maximal transverse dimension. Extensive calcific atherosclerotic vascular disease. Lymph nodes: Unremarkable. No enlarged lymph nodes. IMPRESSION: Abnormality demonstrated within the right side of the pelvis primary consideration is abscess which appears to be intimately related and involving the right iliac veins subsequent dilatation of hypodensity within the lumen of the right iliac veins and right common femoral vein presumably related to thrombus within this structure. Additional fluid collection is demonstrated within the proximal and anterior aspect of the right thigh which appears to be intimately related to the right hip joint septic joint/abscess here considered. Additional presumed small developing regions of phlegmon/abscess demonstrated right side of the mesentery. 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 Communications: Verify Receipt with Nurse Electronically signed by: Joey Magallanes MD 01/05/24 07:51 AM Dictated: 01/05/24750 Transcribed: 01/05/24750 Results CBC w Diff Results: RBC 2.98 M/uL (4.70-6.10) L 01/05/24 WBC 13.93 K/ul (4.8-10.8) H 01/05/24 Hgb 8.8 g/dl (14.0-18.0) L 01/05/24 Hct 28.1 % (42.0-52.0) L 01/05/24 MCV 94.3 fL (80.0-100.0) 01/05/24 MCH 29.5 pg (25.0-34.0) 01/05/24 MCHC 31.3 g/dL (32.0-36.0) L 01/05/24 RDW Standard Deviation 58.4 fL (36.4-46.3) H 01/05/24 RDW Coefficient of Variation 16.8 % (11.5-14.5) H 01/05/24 Plt Count 210 K/uL (130-400) 01/05/24 MPV 9.4 fL (9.4-12.4) 01/05/24 Neutrophils (%) (Auto) 83.4 % 01/05/24 Lymphocytes (%) (Auto) 10.2 % 01/05/24 Monocytes # (Auto) 0.66 K/uL (0.11-0.59) H 01/05/24 Eosinophils # (Auto) 0.08 K/uL (0.00-0.50) 01/05/24 Immature Granulocyte % (Auto) 0.9 % 01/05/24 Neutrophils # (Auto) 11.62 K/uL (1.40-6.50) H 01/05/24 Lymphocytes # (Auto) 1.42 K/uL (1.20-3.40) 01/05/24 Monocytes # (Auto) 0.66 K/uL (0.11-0.59) H 01/05/24 Eosinophils # (Auto) 0.08 K/uL (0.00-0.50) 01/05/24 Basophils # (Auto) 0.03 K/uL (0.00-0.20) 01/05/24 Immature Granulocyte # (Auto) 0.12 K/uL (0.01-0.20) 4 PG Care Time/CCT Total # of Minutes Spent Total Time Spent with Patient: Total time spent is greater than 50% in coordination of care (as documented) at patient's floor/unit and/or counseling patient: Coding Level of Care Code 89152 INT INP/OBS CARE MIN Diagnoses Primary bladder malignant neoplasm C67.9 Abscess of mesentery K65.1
[2024-01-05 15:59] LABS: C Reactive Protein 9.91 mg/dl (0-0.5)
[2024-01-05] MEDS: LACTATED RINGER'S 1,000 ML IV SCH (16:02)
[2024-01-05] MEDS ORDERED: cefTRIAXone SODIUM 2,000 MG/50 ML BAG IV SCH (17:45)
--- NOTE | 2024-01-06 06:44 | Orthopedic Consultation ---
Date of Service January 06, 2024 Assessment & Plan (1) Status post right hip replacement: It is a little bit unclear if the incidental finding of the fluid around the hip is standard postoperative hematoma or if it is an infectious process. We plan to proceed with an aspiration of the site later this morning. Will wait for the results of the aspiration to the side whether a washout is needed or not. He will likely have to follow-up with his urology surgeon in [place] concerning the anterior sacral lesions. History of Present Illness Reason for Consultation: Fluid collection right hip. Requesting Physician: . Attending Physician: Raj Estevez MD Jose R is a pleasant 73-year-old male who I did a right hip replacement on about 4 weeks ago. He has been doing fairly well with his hip. Has been doing with a little bit of thigh pain but the incision healed nicely. There is been no drainage from the incision no erythema. The hip looks good. He was then having some trouble breathing so he saw his integration technician. Ultrasound showed a large DVT in his right iliac vein. He was admitted to the hospital and started on heparin. A CT scan was done of his abdomen and pelvis. It showed a large DVT that also showed some destructive process around the anterior sacrum. There is also some fluid collection around the hip. Orthopedics was consulted for evaluation.. Allergies Allergy/AdvReac Type Severity Reaction Status Date / Time aztreonam Allergy Intermediate swelling, Verified 01/04/24 17:43 hives Carbapenems Allergy Intermediate swelling, Verified 01/04/24 17:43 hives Cephalosporins Allergy Intermediate swelling, Verified 01/04/24 17:43 hives Penicillins Allergy Intermediate swelling, Verified 01/04/24 17:43 hives Home Medications Medication Instructions Recorded Confirmed Type ramipril 5 mg capsule 5 mg PO BID #180 caps 07/07/23 01/04/24 Rx allopurinol 100 mg tablet 200 mg (2 x 100 mg) PO QAM gout 07/29/23 01/04/24 Rx #180 tabs metoprolol succinate 50 mg 50 mg PO QAM #90 tabs 09/08/23 01/04/24 Rx tablet,extended release 24 hr clindamycin phosphate 1 % lotion 1 applic topical DAILY PRN pimples 10/20/23 01/04/24 Rx #60 mL acetaminophen 500 mg capsule 1,000 mg PO TID PRN Pain 11/25/23 01/04/24 History cholecalciferol (vitamin D3) 25 25 mcg PO QAM 11/25/23 01/04/24 History mcg (1,000 unit) tablet (Vitamin D3) cyanocobalamin (vitamin B-12) 1,000 mcg PO QAM 11/25/23 01/04/24 History 1,000 mcg tablet (Vitamin B-12) isosorbide mononitrate 30 mg 30 mg PO QAM 11/25/23 01/04/24 History tablet,extended release 24 hr magnesium 200 mg tablet 400 mg PO QAM 11/25/23 01/04/24 History naproxen sodium 220 mg tablet 220 mg PO BID PRN Pain 11/25/23 01/04/24 History atorvastatin 40 mg tablet 40 mg PO QAM hyperlipidemia #90 11/26/23 01/04/24 Rx tabs metformin 500 mg tablet 500 mg PO BID #180 tabs 11/26/23 01/04/24 Rx aspirin 81 mg tablet,delayed 81 mg PO BID 42 days #0 tabs 12/07/23 01/04/24 Rx release (Adult Aspirin Regimen) oxycodone 5 mg tablet 5 mg PO Q6H PRN pain #30 tabs 12/29/23 01/04/24 Rx Past Med/Surg History Problem List Pelvic mass Abscess of mesentery Elevated transaminase level Anemia Acute hyponatremia (Acute) Sleep apnea cpap Acute UTI (Acute) Right leg DVT (Acute) Status post right hip replacement (~11/2023) Osteoarthritis of right hip Pulmonary nodule COPD (chronic obstructive pulmonary disease) Frequent ventricular premature beats Bilateral tinnitus Sensorineural hearing loss (SNHL) of both ears wears hearing aids Primary bladder malignant neoplasm Lesion of bladder BPH w urinary obs/LUTS Congestion of nasal sinus Nocturnal hypoxemia Severe obstructive sleep apnea CKD (chronic kidney disease) stage 3, GFR 30-59 ml/min (Chronic) Carpal tunnel syndrome of left wrist (Chronic) Colonic polyp (Chronic) Coronary artery disease (Chronic) Gout (Chronic) Hearing loss (Chronic) Hyperlipidemia (Chronic) Hypertension (Chronic) Psoriasis (Chronic) DM2 (diabetes mellitus, type 2) (Chronic) PAD (peripheral artery disease) (Chronic) S/p right LE stent 2019 Medical History Difficult intravenous access PAD (peripheral artery disease) Sensorineural hearing loss COPD (chronic obstructive pulmonary disease) newly dx, following with Dr De Guzman-kyel needing albuterol inhaler Hx of tinnitus History of BPH History of prostate cancer "markers pointing towards prostate cancer" per [facility]. Hx of bladder cancer dx 2021 -> cystectomy Presence of urostomy History of abdominal aortic aneurysm (2006) s/p repair 2006 Also has had a infrarenal abd aortic aneurysm DM type 2 (diabetes mellitus, type 2) on metformin History of COVID-19 01/2022, home test and drive thru [place] test, not hospitalized; congestion, fatigue>resolved Psoriasis High cholesterol Hypertension controlled, stable per pt Gout last flare more than 2 years ago Coronary artery disease S/p stent x 1 in 1999; stent x 1 2001 Chronic kidney disease left renal atrophy Surgical History History of cardiac cath 1999, x1 stent, in [facility]. 04/18/2002, x1 stent-[address] in [facility] 11/2022 - [facility] no stents. S/P prostatectomy (12/2022) [facility] History of total cystectomy (12/2022) [facility] Status post surgical removal and fulguration of bladder neoplasm (10/2022) [facility] H/O transurethral resection of bladder tumor (TURBT) (05/19/22) 05/19/22 Anisa; History of cystoscopy Hx of colonoscopy History of AAA (abdominal aortic aneurysm) repair (2006) 2006, [place], [place] History of heart artery stent 1999, x1 stent, in [facility]. 04/18/2002, x1 stent-[address] in [facility] History of angioplasty 12/2018, right leg, stent x1-[facility] stent; placed behind RT knee.; f/u MONICA Martinez H/O Achilles tendon repair left History of cataract surgery bilat. History of cholecystectomy Family History Mother Cardiac disorder Cancer Hypertension Father Myocardial infarction Sister Skin cancer Other No family history of adverse response to anesthesia Denies family history of Ovarian cancer Prostate cancer Breast cancer Colorectal cancer Social History Smoking Status: Former smoker Tobacco Type: Cigarettes Age Quit Using Tobacco: 51; packs per day: 2; Cigarettes Per Day: 40; Second Hand Exposure: No; Do You Dip or Chew Tobacco: No; Hx Alcohol Use: No Hx Substance Use: No Preferred Language: [place] Communication Ability: Effective Visual Impairment: No Limitations Hearing Ability: Normal Science Specialist Required: No Beliefs That Will Affect Care: None marital status: Current Living Situation: Spouse current occupational status: retired 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 Physical Exam On physical examination of the right hip, the incision is clean and dry. There is no signs of infection. He has no pain to palpation around the anterior hip area. He has a little soreness down his thigh and some swelling of his ankle.. Constitutional WD/WN, vitals as above Eyes PERRL, conjunctivae normal, anicteric sclerae ENMT external ear and nose normal, oropharynx normal Neck trachea midline, no thyromegaly Respiratory normal respiratory effort Cardiovascular RRR, no murmur, no edema Gastrointestinal (Abdomen) normal bowel sounds, soft, nontender, no hepatosplenomegaly Psychiatric A+Ox3, euthymic affect Results & Data Results & Data Laboratory Results . Diagnostic Findings CT scan of the pelvis was reviewed personally with the radiologist. There is some destructive lesions of the anterior sacrum. It is unknown if this is an infectious process or if this is a recurrence of cancer. There is also a fluid collection around the hip. This does communicate with the joint. It is unclear whether this is normal postoperative hematoma/seroma or if this is an infectious process.. PG Care Time/CCT Total # of Minutes Spent Total Time Spent with Patient: Total time spent is greater than 50% in coordination of care (as documented) at patient's floor/unit and/or counseling patient: Coding Level of Care Code 34389 IN/OBS CONSULT LVL 4,60M Diagnoses Status post right hip replacement Z96.641
[2024-01-06 07:02] LABS: Basophils # (auto) 0.03 K/uL (0.00-0.20); Basophils % (auto) 0.2 %; Eosinophils # (auto) 0.08 K/uL (0.00-0.50); Eosinophils % (auto) 0.6 %; Hematocrit (blood only) 28.4 % (42.0-52.0); Hemoglobin 9.1 g/dl (14.0-18.0); Immature Granulocytes # (auto) 0.08 K/uL (0.01-0.20); Immature Granulocytes % (auto) 0.6 %; Lymphocytes # (auto) 1.28 K/uL (1.20-3.40); Mean Corpuscular Volume 93.7 fL (80.0-100.0); Mean Platelet Volume 9.5 fL (9.4-12.4); Monocytes % (auto) 4.9 %; Neutrophils % (auto) 84.7 %; Platelet Count 224 K/uL (130-400); RDW Coefficient of Variation 16.8 % (11.5-14.5); RDW Standard Deviation 57.1 fL (36.4-46.3); Red Blood Count 3.03 M/uL (4.70-6.10); White Blood Count 14.27 K/ul (4.8-10.8)
[2024-01-06 07:18] LABS: Albumin Globulin Ratio 0.7 (0.9-2); Albumin Level 2.9 gm/dl (3.4-5.0); BUN Creatinine Ratio 22.8 (10-20); Bilirubin,Total 0.5 mg/dl (0.2-1.0); C Reactive Protein 10.56 mg/dl (0-0.5); Calcium 9.6 mg/dl (8.6-10.3); Creatinine Clr Calc Pharmacy 70.4 ml/min; Est GFR (African American) 84.5 ml/min; Est GFR (Non-African American) 72.9 ml/min; Potassium 3.9 mmol/L (3.5-5.1); Total Protein 6.9 gm/dl (6.0-8.3)
[2024-01-06 07:28] LABS: ANTI-Xa, UFH(UnfractionatedHep 0.63 IU/ml (0.3-0.7)
[2024-01-06] MEDS: SODIUM CHLORIDE 1 GM TABLET PO SCH (11:20)
[2024-01-06 12:07] LABS: Appearance Synovial Fluid Hazy; Color Synovial Fluid Amber; RBC Synovial Fluid Auto 15000 /uL; Source Synovial Fluid Hip; WBC Synovial Fluid Auto 1061 /ul (0-200)
--- NOTE | 2024-01-06 13:21 | Orthopedic Progress Note ---
Date of Service January 06, 2024 Assessment & Plan (1) Status post right hip replacement: I spoke with the staff member who performed the aspiration of the hip. He stated it did not look infected but of course he was not sure. Initial cell count showed a white count of 1061 which would not indicate an infection. I think is just dealing with normal postoperative seroma/hematoma. He will continue to need treatment for the DVT. He will likely need to follow-up down in [place] for the destructive lesions he sees around his anterior right sacrum. I will continue to follow the aspiration cultures as they come back. Sofiya Odell was seen and examined at bedside this morning. Overall he is doing well. He is not having much pain in the hip. There is been no change in his status with regards to the hip. He did have an aspiration today.. Review of Systems All systems reviewed & are unremarkable except as noted in HPI & below. Physical Exam Physical examination the right hip shows the incision is well-healed. There is no drainage and no signs of infection. He still some swelling around his right leg.. Results & Data Results & Data Laboratory Results . Diagnostic Findings . PG Care Time/CCT Total # of Minutes Spent Total Time Spent with Patient: Total time spent is greater than 50% in coordination of care (as documented) at patient's floor/unit and/or counseling patient: Coding Level of Care Code 88553 SUB INP/OBS CARE MIN Diagnoses Status post right hip replacement Z96.641
--- NOTE | 2024-01-06 13:32 | Ultrasound Report ---
Ultrasound-guided right hip fluid collection aspiration INDICATION: right hip fluid collection; evaluate for infection PROCEDURE: Procedure and risks were explained. Informed consent was obtained. A final timeout was com pleted. The right leg/hip was prepped and draped in sterile fashion. 1% lidocaine was utilized for sk in anesthesia. Utilizing ultrasound guidance, a 5 Greek safety centesis catheter was advanced into the right hip fl uid collection. Ultrasound images were obtained. Approximately 80 mL of fluid was aspirated and sent to lab for culture analysis. The catheter was removed and then applied. The patient tolerated the pro cedure well. IMPRESSION: Ultrasound-guided right hip fluid collection aspiration as above. Performed, dictated, and signed by Aram Allen PA-C; to be co-signed by Dr. Andres Hernandez. Electronically signed by: Andres Hernandez M.D. 01/06/2024 2:46 PM
--- NOTE | 2024-01-06 15:24 | Hospitalist Progress Note ---
Date of Service January 06, 2024 Assessment & Plan (1) Pelvic mass: Plan: CT Venogram: Abnormality demonstrated within the right side of the pelvis primary consideration is abscess which appears to be intimately related and involving the right iliac veins subsequent dilatation of hypodensity within the lumen of the right iliac veins and right common femoral vein presumably related to thrombus within this structure. Additional fluid collection is demonstrated within the proximal and anterior aspect of the right thigh which appears to be intimately related to the right hip joint septic joint/abscess here considered. Additional presumed small developing regions of phlegmon/abscess demonstrated right side of the mesentery. 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 Regarding the pelvis abnormality within the right side - consideration is abscess - general surgery consulted - abscess for concerns for malignancy - cannot be reached by IR. Would recommend transfer to [facility] for tissue sampling if needed Regarding the hip/thigh collected - Dr. Granado, Orthopedics consulted - pt s/p R hip replacement on 12/07/2023 - IR drainage consistent with inflammatory - IR aspiration cultures: pending Discussed case with Dr. Jung, [facility] Urology - recommend treating the clot and outpatient follow up with Dr. Hermosillo Afebrile but leukocytosis on arival Blood cultures negative at 24 hours Antibiotics escalated to Dapto, Cefepime and Flagyl - procal negative Continue heparin gtt at this time - working to find affordable anticoagulation to transition to - Eliquis >$500 per month - awaiting smith check of Xarelto AM CBC, CMP and CRP (2) Right leg DVT: Plan: Patient presented for intermittent right leg pain and swelling x 1 month US Doppler: right lower extremity occlusive (with some nonocclusive portions) DVT in illiac vein throughout entire leg Chest CTA without acute pulmonary embolism Heparin IV (3) Acute hyponatremia: Plan: Na 127 on arrival (most recently Na 136 on 12/07/2023) Suspect component of SIADH v. infection SIADH labs ordered - urine osm 308, urine NA 45 Na improving, NACL tablets stopped, continue FR (4) Acute UTI: Plan: UA positive on arrival; however in the setting of urostomy would expect contamination Clinically, no flank pain or pain around the site of the urostomy Urine Culture: klebsiella oxytoca, pansenstive abx as above (5) DM2 (diabetes mellitus, type 2): Plan: Last A1c at 8.0% on 11/30/23 Hold metformin SSI; with target BSG range 110-140mg/dL, CF 50, carb ratio 15 BSG acceptable (6) Anemia: Plan: Chronic, however slightly below baseline in the setting of recent right hip surgery; Hgb 9.2 on arrival Clinically, no signs of active bleeding on physical exam Hgb stable (7) Elevated transaminase level: Plan: Denies abd pain - downtredning Plan Chronic stable conditions: * Sleep apnea - continue CPAP * Gout - continue Allopurinol * HLD - continue statin * PAD/CAD - continue imdur, will continue ASA once a day with stents in place * HTN - continue Metoprolol and Enalapril Disposition: continue inpatient stay VTE PPx: IV heparin Discussed case with [facility] Urologist . Admission and Anticipated Discharge Date Admission Date: January 04, 2024 Supervising Physician Co-Signing Physician Notes Attending Attestation: Chart reviewed, care plan d/w DOUGLAS Bazzi. I agree w/ the finch components of her documentation. Appreciate IR assistance of drainage of right hip fluid collection. Appreciate input from Dr Granado, orthopedics. Fluid aspirated from right hip region most c/w seroma but await culture. Raj Estevez MD Subjective Patient seen sitting up in bed, present at bedside. Leg feels stiff from immobility but improving frustrated but understanding with waiting pattern. No fevers or chills Review of Systems Review of Systems: All systems reviewed & are unremarkable except as noted in Subjective Physical Exam Physical Exam: General: NAD, VS as above Resp: normal respiratory effort, lungs clear to auscultation CV: RRR, no murmur, Abd: normal bowel sounds, soft, non tender. Urostomy draining clear yellow urine Extremities: left lower extremity - quan hose inplace. left hip incision without obvious signs of infection. General tenderness to right hip. IR bx site without bleeding Neuro: A&O x3, Skin: intact, no lesions noted Results & Data Results & Data Vital Signs (Past 12 Hours) Vital Signs Temp Pulse Resp BP Pulse Ox O2 Del Method 01/06/24 15:07 37.0 C 96 H 16 101/61 95 Room Air 01/06/24 11:36 37.2 C 93 H 18 121/72 95 Room Air 01/06/24 07:45 36.6 C 96 H 20 124/77 96 Room Air PG Care Time/CCT Total # of Minutes Spent Total Time Spent with Patient: Total time spent is greater than 50% in coordination of care (as documented) at patient's floor/unit and/or counseling patient: Coding Level of Care Code 26340 SUB INP/OBS CARE 3/50MIN Diagnoses Pelvic mass R19.00 Right leg DVT I82.421 Affected thrombotic vein of extremity: iliac Chronicity: acute Acute hyponatremia E87.1 Acute UTI N39.0 DM2 (diabetes mellitus, type 2) E11.9 Anemia D64.9 Elevated transaminase level R74.01 (2) Right leg DVT Affected thrombotic vein of extremity: iliac Chronicity: acute Qualified Code(s): I82.421 - Acute embolism and thrombosis of right iliac vein
[2024-01-06] MEDS: MELATONIN 3 MG TAB PO PRN (20:15)
[2024-01-07 16:56] LABS: Basophils # (auto) 0.06 K/uL (0.00-0.20); Basophils % (auto) 0.4 %; Eosinophils % (auto) 0.6 %; Hematocrit (blood only) 26.4 % (42.0-52.0); Hemoglobin 8.4 g/dl (14.0-18.0); Immature Granulocytes # (auto) 0.09 K/uL (0.01-0.20); Immature Granulocytes % (auto) 0.5 %; Lymphocytes # (auto) 1.74 K/uL (1.20-3.40); Lymphocytes % (auto) 10.4 %; Mean Corpuscular Hemoglobin 30.1 pg (25.0-34.0); Mean Corpuscular Hgb Conc 31.8 g/dL (32.0-36.0); Mean Corpuscular Volume 94.6 fL (80.0-100.0); Mean Platelet Volume 10.5 fL (9.4-12.4); Monocytes # (auto) 0.95 K/uL (0.11-0.59); Monocytes % (auto) 5.7 %; Neutrophils # (auto) 13.85 K/uL (1.40-6.50); Neutrophils % (auto) 82.4 %; Platelet Count 215 K/uL (130-400); RDW Coefficient of Variation 16.5 % (11.5-14.5); RDW Standard Deviation 57.1 fL (36.4-46.3); Red Blood Count 2.79 M/uL (4.70-6.10); White Blood Count 16.79 K/ul (4.8-10.8)
--- NOTE | 2024-01-07 17:08 | Hospitalist Progress Note ---
Date of Service January 07, 2024 Assessment & Plan (1) Pelvic mass: Plan: CT Venogram: Abnormality demonstrated within the right side of the pelvis primary consideration is abscess which appears to be intimately related and involving the right iliac veins subsequent dilatation of hypodensity within the lumen of the right iliac veins and right common femoral vein presumably related to thrombus within this structure. Additional fluid collection is demonstrated within the proximal and anterior aspect of the right thigh which appears to be intimately related to the right hip joint septic joint/abscess here considered. Additional presumed small developing regions of phlegmon/abscess demonstrated right side of the mesentery. 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 Regarding the pelvis abnormality within the right side - consideration is abscess - general surgery consulted - abscess for concerns for malignancy - cannot be reached by IR. Would recommend transfer to [facility] for tissue sampling if needed Regarding the hip/thigh collected - Dr. Granado, Orthopedics consulted - pt s/p R hip replacement on 12/07/2023 - IR drainage consistent with inflammatory - IR aspiration cultures: no growth to date Discussed case with Dr. Jung, [facility] Urology 01/05 - recommend treating the clot and outpatient follow up with Dr. Hermosillo Afebrile but leukocytosis on arrival --> slight bump today up to 16 - trend with AM labs Blood cultures negative at 48 hours Antibiotics escalated to Dapto, Cefepime and Flagyl - procal negative Continue heparin gtt at this time - working to find affordable anticoagulation to transition to - Eliquis >$500 per month - awaiting smith check of Xarelto AM CBC, BMP and CRP and procal (2) Right leg DVT: Plan: Patient presented for intermittent right leg pain and swelling x 1 month US Doppler: right lower extremity occlusive (with some nonocclusive portions) DVT in illiac vein throughout entire leg Chest CTA without acute pulmonary embolism Heparin IV until reliable AC for discharge (3) Acute hyponatremia: Plan: Na 127 on arrival (most recently Na 136 on 12/07/2023) Suspect component of SIADH v. infection SIADH labs ordered - urine osm 308, urine NA 45 Na improving, NACL tablets stopped, continue FR (4) Acute UTI: Plan: UA positive on arrival; however in the setting of urostomy would expect contamination Clinically, no flank pain or pain around the site of the urostomy Urine Culture: klebsiella oxytoca, pansenstive abx as above (5) DM2 (diabetes mellitus, type 2): Plan: Last A1c at 8.0% on 11/30/23 Hold metformin SSI; with target BSG range 110-140mg/dL, CF 50, carb ratio 15 BSG acceptable (6) Anemia: Plan: Chronic, however slightly below baseline in the setting of recent right hip surgery; Hgb 9.2 on arrival Clinically, no signs of active bleeding on physical exam Hgb stable (7) Elevated transaminase level: Plan: Denies abd pain - downtredning Plan Chronic stable conditions: * Sleep apnea - continue CPAP * Gout - continue Allopurinol * HLD - continue statin * PAD/CAD - continue imdur, will continue ASA once a day with stents in place * HTN - continue Metoprolol and Enalapril Disposition: continue inpatient stay trending WBC VTE PPx: IV heparin Admission and Anticipated Discharge Date Admission Date: January 04, 2024 Supervising Physician Co-Signing Physician Notes Attending Attestation: Chart reviewed, care plan d/w DOUGLAS Bazzi. I agree w/ the finch components of her documentation. R hip fluid collection cx remains negative. Blood cx's negative. Still with leukocytosis. Cont empiric IV abx. If WBC count and/or CRP/inflammatory markers remain high consider re-imaging of pelvis and/or tx to [facility] for consideration of biopsy/drainage of pelvic abnormality seen on recent CT. I cannot rule out that the pelvic "mass" isn't infectious in etiology. Raj Estevez MD Subjective Patient seen resting in bed around lunch time. Revisited later when was at bed side. Patient frustrated with the holding pattern. Denies fevers of chills. Pain in the right hip he attributes to immobility, I encouraged him to get up to the chair Eliquis was not affordable at the pharmacy - awaiting to hear about Xarelto - should be arriving at the pharmacy this evening Review of Systems Review of Systems: All systems reviewed & are unremarkable except as noted in Subjective Physical Exam Physical Exam: General: NAD, VS as above Resp: normal respiratory effort, lungs clear to auscultation Abd: soft, non tender. Urostomy draining clear yellow urine Extremities: left lower extremity - quan hose inplace. left hip incision without obvious signs of infection. General tenderness to right hip. IR bx site without bleeding Neuro: A&O x3, Skin: intact, no lesions noted Results & Data Results & Data Vital Signs (Past 12 Hours) Vital Signs Temp Pulse Resp BP Pulse Ox O2 Del Method 01/07/24 15:24 36.9 C 94 H 18 104/68 95 Room Air Laboratory Results CBC, chemistry and CRP reviewed PG Care Time/CCT Total # of Minutes Spent Total Time Spent with Patient: Total time spent is greater than 50% in coordination of care (as documented) at patient's floor/unit and/or counseling patient: Coding Level of Care Code 76188 SUB INP/OBS CARE 3/50MIN Diagnoses Pelvic mass R19.00 Right leg DVT I82.421 Affected thrombotic vein of extremity: iliac Chronicity: acute Acute hyponatremia E87.1 Acute UTI N39.0 DM2 (diabetes mellitus, type 2) E11.9 Anemia D64.9 Elevated transaminase level R74.01 (2) Right leg DVT Affected thrombotic vein of extremity: iliac Chronicity: acute Qualified Code(s): I82.421 - Acute embolism and thrombosis of right iliac vein
[2024-01-07 17:28] LABS: ANTI-Xa, UFH(UnfractionatedHep 0.49 IU/ml (0.3-0.7)
[2024-01-07 19:57] LABS: Albumin Globulin Ratio 0.8 (0.9-2); Albumin Level 2.9 gm/dl (3.4-5.0); Bilirubin,Total 0.4 mg/dl (0.2-1.0); C Reactive Protein 9.51 mg/dl (0-0.5); Calcium 9.3 mg/dl (8.6-10.3); Creatinine Clr Calc Pharmacy 71.1 ml/min; Est GFR (African American) 85.6 ml/min; Est GFR (Non-African American) 73.8 ml/min; Globulin 3.7 gm/dl (2.5-4.0); Potassium 3.7 mmol/L (3.5-5.1); Total Protein 6.6 gm/dl (6.0-8.3)
[2024-01-07] MEDS: MELATONIN 3 MG TAB PO PRN (20:27)
[2024-01-07] MEDS: oxyCODONE HCL IR 5 MG TAB (IMMEDIATE RELEASE) PO PRN (22:14)
--- NOTE | 2024-01-08 06:47 | Orthopedic Progress Note ---
Date of Service January 08, 2024 Assessment & Plan (1) Status post right hip replacement: The aspiration of his right hip seem to be mostly a postoperative hematoma/seroma. The cell count showed a white blood cell of 1000 which does not correlate with infection. Cultures have shown no growth to date. The hip d oes not appear to be infected and I think he is just dealing with a normal postoperative course. Unfortunately he still dealing with leukocytosis. Possibility that the anterior sacral mass is recurrence of the bladder cancer versus an abscess. He will follow-up at [place] for that. He is currently being treated for a DVT in his right iliac vein. He is orthopedically stable for discharge when medically ready. He should follow-up with orthopedics in about a month. Sofiya Odell was seen and examined at bedside this morning. Overall he is doing okay with regards to his right hip. Is not having much pain in his right hip. The swelling of his right leg is getting a little bit better. He has no new complaints.. Review of Systems All systems reviewed & are unremarkable except as noted in HPI & below. Physical Exam Physical examination the right hip, shows the incision to be clean and dry. There is really no signs of infection. He has good range of motion of his hip.. Results & Data Results & Data Laboratory Results . Diagnostic Findings . PG Care Time/CCT Total # of Minutes Spent Total Time Spent with Patient: Total time spent is greater than 50% in coordination of care (as documented) at patient's floor/unit and/or counseling patient: Coding Level of Care Code 30884 SUB INP/OBS CARE 2/35MIN Diagnoses Status post right hip replacement Z96.641
[2024-01-08 07:36] LABS: Basophils # (auto) 0.06 K/uL (0.00-0.20); Basophils % (auto) 0.3 %; Eosinophils # (auto) 0.15 K/uL (0.00-0.50); Eosinophils % (auto) 0.8 %; Hematocrit (blood only) 24.2 % (42.0-52.0); Hemoglobin 7.7 g/dl (14.0-18.0); Immature Granulocytes # (auto) 0.15 K/uL (0.01-0.20); Immature Granulocytes % (auto) 0.8 %; Lymphocytes # (auto) 1.92 K/uL (1.20-3.40); Lymphocytes % (auto) 10.4 %; Mean Corpuscular Hemoglobin 29.8 pg (25.0-34.0); Mean Corpuscular Hgb Conc 31.8 g/dL (32.0-36.0); Mean Corpuscular Volume 93.8 fL (80.0-100.0); Mean Platelet Volume 9.8 fL (9.4-12.4); Monocytes % (auto) 5.4 %; Neutrophils # (auto) 15.21 K/uL (1.40-6.50); Neutrophils % (auto) 82.3 %; Platelet Count 217 K/uL (130-400); RDW Coefficient of Variation 16.5 % (11.5-14.5); RDW Standard Deviation 56.1 fL (36.4-46.3); Red Blood Count 2.58 M/uL (4.70-6.10); White Blood Count 18.49 K/ul (4.8-10.8)
[2024-01-08 07:46] LABS: ANTI-Xa, UFH(UnfractionatedHep 0.61 IU/ml (0.3-0.7)
[2024-01-08 07:47] LABS: BUN Creatinine Ratio 42.4 (10-20); C Reactive Protein 7.38 mg/dl (0-0.5); Calcium 9.2 mg/dl (8.6-10.3); Creatinine Clr Calc Pharmacy 71.9 ml/min; Est GFR (African American) 86.6 ml/min; Est GFR (Non-African American) 74.7 ml/min; Potassium 3.9 mmol/L (3.5-5.1)
[2024-01-08 08:13] LABS: Polychromasia 1+
[2024-01-08] MEDS: SODIUM CHLORIDE 0.9% 500 ML IV SCH (09:15)
[2024-01-08] MEDS: OPTIRAY 320 100ml IV ONE (09:47)
--- NOTE | 2024-01-08 11:45 | CT Scan Report ---
CT pelvis w/IV con only CLINICAL HISTORY: Reeval pelvic lesion, increasing WBC TECHNIQUE: Helical axial images of the pelvis were obtained and displayed at 5 and 1 mm intervals. Au tomated dose lowering techniques and/or adjustment according to patient size were utilized for this e xam. This exam was performed with intravenous contrast. CT DOSE: 827.46 mGy.cm COMPARISON: Comparison is made to CT abdomen pelvis 01/05/2024 FINDINGS: Bladder: Postsurgical changes of cystectomy. Reproductive organs: Unremarkable. Bowel: Postsurgical changes of bowel resection and ileal conduit are seen. The appendix is normal. Lymph nodes Pelvic: Unremarkable. Mesenteric: Unremarkable. Peritoneum: Right pelvic fluid collection is unchanged measuring 37 x 55 mm. It is unchanged in confi guration from the prior exam, remaining complex in appearance with rim enhancement. 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 A right external/common iliac DVT is seen. Abdominal wall: A fluid collection by the proximal right thigh is unchanged. Bones: Degenerative changes are seen. Right hip arthroplasty is seen. Erosive changes about the right sacrum are seen. IMPRESSION: 1. Unchanged appearance of right pelvic collection. This may represent a focus of metastatic disease with invasion of the adjacent sacrum, although a chronic infectious process may appear similar. 2. Right thigh fluid collection is seen which was previously aspirated and found to be sterile. 3. Additional postsurgical changes as above. ACT 112: Negative or not required by law. Electronically signed by: Sinan Flores M.D. 01/08/2024 11:43 AM
[2024-01-08] MEDS: PANTOprazole 40 MG TAB PO SCH (12:29)
[2024-01-08] MEDS ORDERED: SODIUM CHLORIDE 0.9% 250 ML IV PRN (12:43)
[2024-01-08] MEDS: SENNA 8.6 MG TAB PO SCH (14:02)
[2024-01-08] MEDS: POLYETHYLENE (MIRALAX) 17 GM PACK PO SCH (14:02)
[2024-01-08] MEDS: ACETAMINOPHEN 325 MG TAB PO PRN (14:13)
[2024-01-08] MEDS: ACETAMINOPHEN 500 MG TAB PO ONE (14:14)
--- NOTE | 2024-01-08 17:06 | Discharge Summary ---
Date of Service January 08, 2024 Admission HPI Per Admitting Provider Jose R is a 73-year-old male with PMH of T2DM, PAD, HTN, HLD, gout, CKD stage III, severe ADOLFO, BPH, and COPD. Patient presented on 01/03 for persistent right lower extremity swelling, and worsening TENORIO x 1 month. Patient was at a pulmonary visit with Dr. De Guzman today for PFTs, but was sent in due to concern for blood clot in his right leg. No prior history of blood clots in his lungs or lungs. He does endorse dyspnea on exertion over the past month since his surgery; remote history of right hip replacement on 12/06. No SOB at rest. SOB is not worse when he lies flat on his back. No supplemental oxygen at baseline. Patient does use a CPAP at night. He has been ambulating with a walker at home, but does endorse some ambulatory dysfunction. Swelling in his leg has led to difficulty with sleeping. He characterizes the pain as a "achiness" that radiates from his hamstring up towards his buttocks. He has been taking oxycodone 5 mg at night for the pain which does help. Patient is s/p urostomy, and does not have a history of UTIs to his knowledge. Patient took his regular morning medications today; no recent change in medications. No history of GI bleeds or bleeding disorders. Patient does endorse having a PCN allergy, but this was over 40y ago; he had some facial swelling and rash; no anaphylaxis or throat closure. Patient denies smoking, tobacco use, or recent alcohol use. Patient's vitals are stable at time of admission. ED course: Heparin IV Rocephin 2000 mg IV ROS: Patient endorses achiness/erythema in the right leg, new TENORIO, and constipation. Patient denies fever, chills, night-sweats, dizziness, lightheadedness, ECKERT, SOB at rest, chest pain, chest pressure, chest palpitations, pleuritic CP, cough, hemoptysis, abdominal pain, N/V/D, or numbness/tingling in the right leg. Discharge Data Allergies Allergy/AdvReac Type Severity Reaction Status Date / Time aztreonam Allergy Intermediate swelling, Verified 01/04/24 17:43 hives Carbapenems Allergy Intermediate swelling, Verified 01/04/24 17:43 hives Cephalosporins Allergy Intermediate swelling, Verified 01/04/24 17:43 hives Penicillins Allergy Intermediate swelling, Verified 01/04/24 17:43 hives Consultations 01/04/24 17:43 ED Decision to Admit Stat 01/05/24 08:12 Consult Vascular Surgery Routine 01/05/24 08:15 Consult Orthopedic Surgery Routine 01/05/24 13:10 Consult General Surgery Routine Ordered Studies 01/04/24 15:28 CT angio chest PE protocol Stat US venous doppler LE RT Stat 01/05/24 07:00 CT abdomen pelvis veno w con Routine 01/06/24 08:01 IR aspinj mjr jnt sh,hip,kn RT Urgent 01/08/24 08:00 CT pelvis w/IV con only Urgent Hospital Course (1) Pelvic mass: CT Venogram: Abnormality demonstrated within the right side of the pelvis primary consideration is abscess which appears to be intimately related and involving the right iliac veins subsequent dilatation of hypodensity within the lumen of the right iliac veins and right common femoral vein presumably related to thrombus within this structure. Additional fluid collection is demonstrated within the proximal and anterior aspect of the right thigh which appears to be intimately related to the right hip joint septic joint/abscess here considered. Additional presumed small developing regions of phlegmon/abscess demonstrated right side of the mesentery. 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 Regarding the pelvis abnormality within the right side - consideration is abscess - general surgery consulted - abscess for concerns for malignancy - cannot be reached by IR. Would recommend transfer [place] [facility] if needed Regarding the hip/thigh collected - Dr. Granado, Orthopedics consulted - pt s/p R hip replacement on 12/07/2023 - IR drainage consistent with inflammatory - IR aspiration cultures: no growth to date Discussed case with Dr. Jung, [facility] 01/[place] - recommend treating the clot and outpatient follow up with Dr. Hermosillo Afebrile but leukocytosis on arrival --> slight bump today up to 16 - trend with AM labs Blood cultures negative at 48 hours Antibiotics escalated to Dapto, Cefepime and Flagyl - procal negative Continue heparin gtt at this time - working to find affordable anticoagulation to transition to - Eliquis >$500 per month - awaiting smith check of Xarelto AM CBC, BMP and CRP and procal (2) Right leg DVT: Patient presented for intermittent right leg pain and swelling x 1 month US Doppler: right lower extremity occlusive (with some nonocclusive portions) DVT in illiac vein throughout entire leg Chest CTA without acute pulmonary embolism Heparin IV until reliable AC for discharge (3) Acute hyponatremia: Na 127 on arrival (most recently Na 136 on 12/07/2023) Suspect component of SIADH v. infection SIADH labs ordered - urine osm 308, urine NA 45 Na improving, NACL tablets stopped, continue FR (4) Acute UTI: UA positive on arrival; however in the setting of urostomy would expect contamination Clinically, no flank pain or pain around the site of the urostomy Urine Culture: klebsiella oxytoca, pansenstive abx as above (5) DM2 (diabetes mellitus, type 2): Last A1c at 8.0% on 11/30/23 Hold metformin SSI; with target BSG range 110-140mg/dL, CF 50, carb ratio 15 BSG acceptable (6) Anemia: Chronic, however slightly below baseline in the setting of recent right hip surgery; Hgb 9.2 on arrival Clinically, no signs of active bleeding on physical exam Hgb stable (7) Elevated transaminase level: Denies abd pain - downtredning Plan Chronic stable conditions: * Sleep apnea - continue CPAP * Gout - continue Allopurinol * HLD - continue statin * PAD/CAD - continue imdur, will continue ASA once a day with stents in place * HTN - continue Metoprolol and Enalapril Disposition: continue inpatient stay trending WBC VTE PPx: IV heparin Discharge Plan Discharge Items Reason For Visit: RIGHT LEG SWELLING, TENORIO Follow-up/Referrals: Veronica Mena MD [Primary Care Provider] - Medications and DC Order Prescriptions: New Xarelto DVT-PE Treat 30d Start 15 mg (42)- 20 mg (9) tablets,dose pack See Rx Instructions .ROUTE .COMPLEX Qty: 51 0RF Rx Instructions: take one-15 mg tablet twice daily for 21 days, then one-20 mg tablet once daily; must take with meal/food No Action ramipril 5 mg capsule 5 mg PO BID Qty: 180 3RF metoprolol succinate 50 mg tablet extended release 24 hr 50 mg PO QAM Qty: 90 3RF metformin 500 mg tablet 500 mg PO BID Qty: 180 1RF Rx Instructions: TAKE 1 TABLET BY MOUTH TWICE A DAY atorvastatin 40 mg tablet 40 mg PO QAM Qty: 90 3RF oxycodone 5 mg tablet 5 mg PO Q6H PRN (Reason: pain) Qty: 30 0RF allopurinol 100 mg tablet 200 mg PO QAM Qty: 180 1RF clindamycin phosphate 1 % lotion 1 applic topical DAILY PRN (Reason: pimples) Qty: 60 1RF isosorbide mononitrate 30 mg tablet extended release 24 hr 30 mg PO QAM naproxen sodium 220 mg Tablet 220 mg PO BID PRN (Reason: Pain) acetaminophen 500 mg Capsule 1,000 mg PO TID PRN (Reason: Pain) cyanocobalamin (vitamin B-12) [Vitamin B-12] 1,000 mcg Tablet 1,000 mcg PO QAM magnesium 200 mg Tablet 400 mg PO QAM cholecalciferol (vitamin D3) [Vitamin D3] 25 mcg (1,000 unit) Tablet 25 mcg PO QAM aspirin [Adult Aspirin Regimen] 81 mg tablet,delayed release (DR/EC) 81 mg PO BID 42 Days Qty: 0 0RF Admission Data Admit Date/Time: 01/04/24 19:44 Attending Provider: Raj Estevez Admit Provider: Raj Landers Primary Care Provider: Veronica Mena Other Providers: Raj Landers; Oscar Granado; Del Pinzon; Kali Toledo Coding Diagnoses Pelvic mass R19.00 Right leg DVT I82.421 Affected thrombotic vein of extremity: iliac Chronicity: acute Acute hyponatremia E87.1 Acute UTI N39.0 DM2 (diabetes mellitus, type 2) E11.9 Anemia D64.9 Elevated transaminase level R74.01
[2024-01-09] MEDS ORDERED: METOPROLOL SUCC 25MG EXT REL TAB PO SCH (09:00)
[2024-01-15 12:57] LABS: Mononuclear WBC Synovial 20.8 %; Polynuclear WBC Synovial 79.2 %
== END 2024-01-08 19:47 | disposition short-term general hospital (02) | DRG 299 ==
LOC: ED 15:00 → SUATTDRO 19:44 → EDINP 19:44 → 2N 22:15